=== PATIENT | male | born 1950 | race Caucasian/White ===

== ENCOUNTER 2020-07-07 16:37 | Outpatient (REF) | payer MEDICARE, SELFPAY | END 2020-07-07 16:38 | disposition home or self-care (01) | LOC: HO.LAB 16:37 | PROVIDERS: Visit Provider Internal Medicine | DX: Z20.828 Contact with and (suspected) exposure to other viral communicable diseases (principal) | CPT/HCPCS: C9803; U0003 ==

== ENCOUNTER 2021-10-29 20:48 | Emergency (ER) | payer MEDICARE, SELFPAY ==
--- NOTE | ~2021-10-29 | XR_ITS ---
EXAMINATION: XR CHEST CLINICAL INFORMATION: Tachycardia. COMPARISON: None TECHNIQUE: Frontal view of the chest was obtained. FINDINGS: No significant abnormality is noted involving the heart, lungs, mediastinum, bony thorax or soft tissues. XR/XR chest 1V IMPRESSION: Unremarkable examination.
--- NOTE | ~2021-10-29 | CT_ITS ---
EXAMINATION: CT ABDOMEN AND PELVIS WITH CONTRAST CLINICAL INFORMATION: Mid abdominal pain. COMPARISON: CT of the abdomen and pelvis done on 10/18/2015. TECHNIQUE: Multidetector volumetric images were obtained from the superior aspect of the liver through the pubic symphysis following administration 85 mL of Omnipaque 350 intravenous contrast. Sagittal and coronal reformatted images were obtained on the technologist's workstation. Oral contrast: No This CT examination was performed using dose optimization techniques as appropriate, variously including the following: *Automated exposure control *Adjustment of mA and/or kV according to patient size (this includes techniques or standardized protocols for targeted exams where dose is matched to indication/reason for exam; i.e. extremities or head) *Use of iterative reconstruction technique DLP: 592 mGy-cm FINDINGS: LUNG BASES: The visualized lung bases are unremarkable. LIVER, GALLBLADDER, AND BILIARY TREE: The liver is normal in size, shape, and attenuation. No focal hepatic lesion or biliary ductal dilatation is present. Multiple radiopaque well faceted gallstones are present without evidence of any wall thickening or pericholecystic fluid or features of biliary obstruction. PANCREAS: Unremarkable. SPLEEN: Unremarkable. ADRENAL GLANDS: Unremarkable. KIDNEYS AND URETERS: The kidneys are normal in size, shape, and attenuation. No hydronephrosis, hydroureter, or calculi seen. No perinephric stranding. BLADDER: Suboptimally distended, grossly unremarkable. GASTROINTESTINAL TRACT: Colonic diverticulosis related changes are present throughout the entire large bowel without any CT features of superimposed acute diverticulitis. The appendix is well-visualized at right quadrant and is unremarkable. The small bowel loops are decompressed. The stomach is decompressed. ABDOMINAL WALL: No significant hernia is appreciated. LYMPH NODES: Normal. VASCULAR: Diffuse atherosclerotic disease of the aorta and is branches without aneurysm formation. PELVIC VISCERA: There is no pelvic mass present. However the prostate is enlarged, measures 5.6 x 4.2 cm. No evidence of any free fluid and/or free air. OSSEOUS STRUCTURES: Moderate diffuse osteopenia. Moderate to severe degenerative spondylosis at L4-L5 and L5-S1. No suspicious focal osseous lesions. CT/CT abdomen pelvis w con IMPRESSION: 1. Cholelithiasis without any CT features of superimposed acute cholecystitis or biliary obstruction. 2. Colonic diverticulosis without any CT features of superimposed acute diverticulitis. 3. Enlarged prostate. 4. Moderate diffuse osteopenia and moderate to severe degenerative spondylosis at L4-L5 and L5-S1. Fleischner guidelines were followed.
[2021-10-29 20:52] VITALS: BP 136/99; PULSE 119; RESP 18; TEMP 37.2; O2SAT 94; BMI 28.5
--- NOTE | 2021-10-29 20:56 | ECG_ITS ---
Test Reason : Epigastric pain Blood Pressure : / mmHG Vent. Rate : 115 BPM Atrial Rate : 115 BPM P-R Int : 176 ms QRS Dur : 088 ms QT Int : 318 ms P-R-T Axes : 040 -01 006 degrees QTc Int : 439 ms Sinus tachycardia Inferior infarct , age undetermined Possible Anterior infarct , age undetermined Abnormal ECG When compared to the previous EKG of No significant changes seen Referred By: Matthew Allan Electronically Signed By:Andrey Cameron
[2021-10-29 21:04] LABS: MANUAL DIFF FLAG NO
[2021-10-29 21:07] LABS: Basophils Percent Auto 0.3 % (0-2); Hemoglobin 16.4 g/dl (14.0-18.0); Imm Gran Abs Auto 0.02 X10*3/uL (0.00-0.03); Imm Gran Pct Auto 0.3 % (0.0-0.4); Lymphocytes Absolute Auto 0.9 X10*3/uL (1.2-4.9); Lymphocytes Percent Auto 12.3 % (20-40); Mean Corpuscular HGB Conc 34.2 g/dl (31.0-36.0); Mean Corpuscular Hemoglobin 29.9 pg (27.0-33.0); Mean Corpuscular Volume 87.4 fL (80.0-98.0); Mean Platelet Volume 9.4 fL (9.4-12.4); Monocytes Absolute Auto 0.8 X10*3/uL (0.1-1.2); Monocytes Percent Auto 11.1 % (2-11); Neutrophils Absolute Auto 5.6 x10*3/uL (2.0-8.3); Platelet Count 184 X10*3/uL (160-400); Red Blood Count 5.49 X10*6/uL (4.60-5.80); Red Cell Distribution Width 12.5 % (11.0-16.0); White Blood Count 7.3 X10*3/uL (4.8-10.8)
[2021-10-29 21:31] LABS: Anion Gap 14 (12-20); Blood Urea Nitrogen 16 mg/dL (9-16); Calcium 9.8 mg/dL (8.4-10.2); Carbon Dioxide 24 mmol/L (22-29); Chloride 102 mmol/L (96-108); Creatinine Clr Calc Pharmacy 60.3; Estimated Glomerular Filt Rate > 60; Glucose Random 190 mg/dL (60-115); Potassium 4.3 mmol/L (3.3-5.1); Sodium 136 mmol/L (135-145)
[2021-10-29 21:36] LABS: Troponin-I High Sensitivity < 3.5 ng/L (<3.5-35.0)
--- NOTE | 2021-10-29 21:49 | ED.ABDPAIN ---
HPI - Abdominal Pain General Chief Complaint: Abdominal Pain Stated Complaint: stomach pain Time Seen by Provider: 10/29/21 21:45 Source: patient Mode of arrival: ambulatory Limitations: no limitations History of Present Illness HPI narrative: Patient with no significant past medical history notice epigastric pain for last 2 days with poor appetite and nausea. Patient never had similar pain in the past does not feel hungry Related Data Previous Rx's Medication Instructions Recorded ondansetron 4 mg disintegrating 4 mg PO Q6-8H PRN #7 tab 10/29/21 tablet oxycodone 5 mg tablet 5 mg PO Q6H PRN #20 tab 10/29/21 Allergies Allergy/AdvReac Type Severity Reaction Status Date / Time No Known Allergies Allergy Unverified 04/22/20 15:09 Review of Systems Review of Systems Yes all other systems are reviewed and are negative [facility] Past Medical History Medical History Hypertension Social History Social History Advance Directives: No Advance Directives Information Provided: No Physical Exam ED Vital Signs: Vital Signs - 24 hr 10/29/21 20:52 10/29/21 21:59 10/29/21 22:45 Temperature 99.0 F 99 F Pulse Rate 119 H 61 80 Respiratory Rate 18 18 14 Blood Pressure 136/99 H 114/63 135/85 Pulse Oximetry 94 97 99 BMI result Body Mass Index 28.5 Appearance: Alert. Oriented X3. No acute distress. Eyes: No pallor or icterus ENT: Pharynx normal. Oral Mucosa moist Neck: Normal inspection. Neck supple. CVS: Normal heart rate and rhythm. Pulses normal. Respiratory: No respiratory distress. Equal air entry bilateral, no wheezing/rales/rhonchi Abdomen: Soft , deep tenderness in epigastric area and right upper quadrant, no rebound tenderness or guarding Bowel sounds are present, no mass palpable, no CVA tenderness Skin: Skin warm and dry. Normal skin color. Normal skin turgor. Extremities: No lower extremity edema. No calf tenderness Neuro: Oriented X 3. No motor deficit. MDM - Abdominal Pain MDM Narrative Medical decision making narrative: Patient with cholelithiasis were normal LFTs and lipase no signs of biliary obstruction or cholecystitis patient feeling much better now after pain medication IV fluid discharge patient home advised to follow with surgeon Lab Data Attestation: I reviewed the patient's lab results. Result diagrams: 10/29/21 21:01 10/29/21 21:00 Labs: Lab Results 10/29/21 10/29/21 10/29/21 Range/Units 21:00 21:00 21:01 WBC 7.3 (4.8-10.8) X10*3/uL RBC 5.49 (4.60-5.80) X10*6/uL Hgb 16.4 (14.0-18.0) g/dl Hct 48.0 (42.0-52.0) % MCV 87.4 (80.0-98.0) fL MCH 29.9 (27.0-33.0) pg MCHC 34.2 (31.0-36.0) g/dl RDW 12.5 (11.0-16.0) % Plt Count 184 (160-400) X10*3/uL MPV 9.4 (9.4-12.4) fL Immature Gran % (Auto) 0.3 (0.0-0.4) % Neut % (Auto) 76.0 H (45-73) % Lymph % (Auto) 12.3 L (20-40) % [place] % (Auto) 11.1 H (2-11) % Eos % (Auto) 0.0 (0-4) % Baso % (Auto) 0.3 (0-2) % Lymph # (Auto) 0.9 L (1.2-4.9) X10*3/uL [place] # (Auto) 0.8 (0.1-1.2) X10*3/uL Eos # (Auto) 0.0 (0.0-0.4) X10*3/uL Baso # (Auto) 0.0 (0.0-0.2) X10*3/uL Abs Immat Gran (auto) 0.02 (0.00-0.03) X10*3/uL Absolute Neuts (auto) 5.6 (2.0-8.3) x10*3/uL Absolute Nucleated RBC 0.000 (0.0-0.012) X10*3/uL Nucleated RBC % (auto) 0.0 (0.0-0.2) /100WBC Sodium 136 (135-145) mmol/L Potassium 4.3 (3.3-5.1) mmol/L Chloride 102 (96-108) mmol/L Carbon Dioxide 24 (22-29) mmol/L Anion Gap 14 (12-20) BUN 16 (9-16) mg/dL Creatinine 1.16 (0.5-1.4) mg/dL Estim Creat Clear Calc 60.3 Estimated GFR > 60 Random Glucose 190 H (60-115) mg/dL Calcium 9.8 (8.4-10.2) mg/dL Total Bilirubin 0.8 (0.0-1.0) mg/dL Direct Bilirubin 0.3 (0.0-0.5) mg/dL AST 21 (5-37) U/L ALT 20 (0-40) U/L Alkaline Phosphatase 80 (39-117) U/L Troponin I High Sens < 3.5 (<3.5-35.0) ng/L Total Protein 7.4 (6.5-8.0) g/dL Albumin 4.2 (3.5-5.0) g/dL Lipase 35 (8-78) U/L 03// Range/Units 22:49 WBC (4.8-10.8) X10*3/uL RBC (4.60-5.80) X10*6/uL Hgb (14.0-18.0) g/dl Hct (42.0-52.0) % MCV (80.0-98.0) fL MCH (27.0-33.0) pg MCHC (31.0-36.0) g/dl RDW (11.0-16.0) % Plt Count (160-400) X10*3/uL MPV (9.4-12.4) fL Immature Gran % (Auto) (0.0-0.4) % Neut % (Auto) (45-73) % Lymph % (Auto) (20-40) % [place]ard % (Auto) (2-11) % Eos % (Auto) (0-4) % Baso % (Auto) (0-2) % Lymph # (Auto) (1.2-4.9) X10*3/uL [place]ard # (Auto) (0.1-1.2) X10*3/uL Eos # (Auto) (0.0-0.4) X10*3/uL Baso # (Auto) (0.0-0.2) X10*3/uL Abs Immat Gran (auto) (0.00-0.03) X10*3/uL Absolute Neuts (auto) (2.0-8.3) x10*3/uL Absolute Nucleated RBC (0.0-0.012) X10*3/uL Nucleated RBC % (auto) (0.0-0.2) /100WBC Sodium (135-145) mmol/L Potassium (3.3-5.1) mmol/L Chloride (96-108) mmol/L Carbon Dioxide (22-29) mmol/L Anion Gap (12-20) BUN (9-16) mg/dL Creatinine (0.5-1.4) mg/dL Estim Creat Clear Calc Estimated GFR Random Glucose (60-115) mg/dL Calcium (8.4-10.2) mg/dL Total Bilirubin (0.0-1.0) mg/dL Direct Bilirubin (0.0-0.5) mg/dL AST (5-37) U/L ALT (0-40) U/L Alkaline Phosphatase (39-117) U/L Troponin I High Sens < 3.5 (<3.5-35.0) ng/L Total Protein (6.5-8.0) g/dL Albumin (3.5-5.0) g/dL Lipase (8-78) U/L Discharge Plan Discharge Clinical Impression: Cholelithiasis Patient Disposition: Home, Self-Care Instructions: Gallstones (ED) Additional Instructions: Drink plenty of fluids Avoid fried food Follow with surgeon for Report to the ER if worsening of the pain Pain medication as advised Prescriptions: New ondansetron 4 mg tablet,disintegrating 4 mg PO Q6-8H PRN (Reason: nausea and vomiting) Qty: 7 0RF oxycodone 5 mg tablet 5 mg PO Q6H PRN (Reason: Pain, Moderate) Qty: 20 0RF Referrals: Garth Rothman MD [Physician] - 5 days Interventions: ED Discharge Assessment Last Done: 10/30/21 00:02 Discharge Date/Time: 10/30/21 00:02
--- NOTE | 2021-10-29 21:50 | PC.NURSE ---
Assumed care of pt Pt c/o sharp epigastric pain starting yesterday. Per pt, worse when laying down. Pt was at a wedding today and went home to lay down when pain worsened and decided to come to ED Pain non-radiating Denies n/v Pt on monitors NAD Will continue to monitor
[2021-10-29 21:59] VITALS: BP 114/63; PULSE 61; RESP 18; TEMP 37.2; O2SAT 97
[2021-10-29 22:15] LABS: Alanine Aminotransferase 20 U/L (0-40); Albumin Level 4.2 g/dL (3.5-5.0); Alkaline Phosphatase 80 U/L (39-117); Aspartate Amino Transferase 21 U/L (5-37); Bilirubin Direct 0.3 mg/dL (0.0-0.5); Bilirubin Total 0.8 mg/dL (0.0-1.0); Lipase 35 U/L (8-78); Total Protein 7.4 g/dL (6.5-8.0)
[2021-10-29] MEDS: iohexoL 350 MG/ML 100 ML INFUS..BTL IV (22:24)
[2021-10-29] MEDS: 0.9 % Sodium Chloride 1,000 ML 999 ML IV (22:31)
[2021-10-29] MEDS: Famotidine/PF 20 MG/2 ML VIAL IVPUSH (22:32)
[2021-10-29 22:45] VITALS: BP 135/85; PULSE 80; RESP 14; O2SAT 99
[2021-10-29 23:15] LABS: Troponin-I High Sensitivity < 3.5 ng/L (<3.5-35.0)
[2021-10-29] MEDS: Ketorolac Tromethamine 30 MG/ML VIAL IVPUSH (23:55)
== END 2021-10-30 00:02 | disposition home or self-care (01) ==
PROVIDERS: Emergency Provider Internal Medicine
DX: K80.20 Calculus of gallbladder without cholecystitis without obstruction (principal); R10.10 Upper abdominal pain, unspecified; I10 Essential (primary) hypertension
CPT/HCPCS: 36415; 71045; 74177; 80048; 80076; 83690; 84484; 85025; 93005; 96361; 96374; 96375; 99284; J1885; Q9967

== ENCOUNTER 2021-10-31 16:41 | Emergency (ER) | payer MEDICARE, SELFPAY ==
--- NOTE | ~2021-10-31 | XR_ITS ---
EXAMINATION: XR CHEST CLINICAL INFORMATION: Chest pain and cough COMPARISON: None TECHNIQUE: 2 views of the chest were obtained. FINDINGS: Normal symmetric lung volumes. No parenchymal consolidation. No pleural effusion. No pneumothorax. Cardiomediastinal silhouette and pulmonary vascularity are within normal limits. No acute osseous abnormalities. XR/XR chest 2V IMPRESSION: No acute findings
[2021-10-31 16:54] VITALS: BP 154/98; PULSE 111; RESP 18; TEMP 36.9; O2SAT 95; BMI 28.1
--- NOTE | 2021-10-31 16:57 | ECG_ITS ---
Test Reason : CHEST PAIN Blood Pressure : / mmHG Vent. Rate : 109 BPM Atrial Rate : 109 BPM P-R Int : 154 ms QRS Dur : 086 ms QT Int : 310 ms P-R-T Axes : -02 038 007 degrees QTc Int : 417 ms Sinus tachycardia Otherwise normal ECG When compared with ECG of 29-OCT-2021 20:59, Borderline criteria for Anterior infarct are no longer Present Referred By: Generic ED Physician Electronically Signed By:SHAILESH NIETO
[2021-10-31 17:12] LABS: MANUAL DIFF FLAG NO
[2021-10-31 17:19] LABS: Basophils Percent Auto 0.2 % (0-2); Eosinophils Percent Auto 0.1 % (0-4); Hematocrit 47.5 % (42.0-52.0); Hemoglobin 15.8 g/dl (14.0-18.0); Imm Gran Abs Auto 0.02 X10*3/uL (0.00-0.03); Imm Gran Pct Auto 0.2 % (0.0-0.4); Lymphocytes Absolute Auto 0.9 X10*3/uL (1.2-4.9); Lymphocytes Percent Auto 10.1 % (20-40); Mean Corpuscular HGB Conc 33.3 g/dl (31.0-36.0); Mean Corpuscular Hemoglobin 29.5 pg (27.0-33.0); Mean Corpuscular Volume 88.6 fL (80.0-98.0); Mean Platelet Volume 9.6 fL (9.4-12.4); Monocytes Absolute Auto 0.7 X10*3/uL (0.1-1.2); Neutrophils Percent Auto 81.4 % (45-73); Platelet Count 164 X10*3/uL (160-400); Red Blood Count 5.36 X10*6/uL (4.60-5.80); Red Cell Distribution Width 12.6 % (11.0-16.0); White Blood Count 8.6 X10*3/uL (4.8-10.8)
[2021-10-31 17:26] LABS: Anion Gap 13 (12-20); Blood Urea Nitrogen 17 mg/dL (9-16); Calcium 9.8 mg/dL (8.4-10.2); Carbon Dioxide 28 mmol/L (22-29); Chloride 103 mmol/L (96-108); Creatinine Clr Calc Pharmacy 62.5; Estimated Glomerular Filt Rate > 60; Glucose Random 152 mg/dL (60-115); Potassium 4.1 mmol/L (3.3-5.1); Sodium 140 mmol/L (135-145)
[2021-10-31 17:33] LABS: Troponin-I High Sensitivity < 3.5 ng/L (<3.5-35.0)
[2021-11-01 01:38] VITALS: BP 134/92; PULSE 98; RESP 14; O2SAT 99
--- NOTE | 2021-11-01 01:43 | ED.CHESTPAIN ---
HPI - Chest Pain General Chief Complaint: Chest Pain Stated Complaint: chest pain Time Seen by Provider: 11/01/21 01:43 Source: patient Mode of arrival: ambulatory Limitations: no limitations History of Present Illness HPI narrative: patient with chest pain due to coughing all day, no fever complaint: chest pain Timing of current episode: constant Onset: other (coughing) Pain location: substernal Severity: mild Quality: sharp Associated symptoms: other (shortness of breath) Related Data Previous Rx's Medication Instructions Recorded ondansetron 4 mg disintegrating 4 mg PO Q6-8H PRN #7 tab 10/29/21 tablet oxycodone 5 mg tablet 5 mg PO Q6H PRN #20 tab 10/29/21 naproxen 500 mg tablet (Naprosyn) 500 mg PO BID #20 tab 11/01/21 [id number] 2.5 20 ml PO Q4H PRN #118 ml 11/01/21 mg-5 mg-50 mg/5 mL oral liquid (Robitussin Cough and Cold CF) Allergies Allergy/AdvReac Type Severity Reaction Status Date / Time No Known Allergies Allergy Unverified 04/22/20 15:09 Review of Systems Constitutional: Constitutional: Reports no additional constitutional complaints Eyes: Eyes: Reports no additional eye complaints ENT: Denies dizziness Cardiovascular: Cardiovascular: Reports no additional cardiovascular complaints Respiratory: Respiratory: Reports as per HPI Gastrointestinal: Gastrointestinal: Reports no additional gastrointestinal complaints Musculoskeletal: Musculoskeletal: Reports no additional musculoskeletal complaints Integumentary/Breasts: Skin/Breast: Denies rash Neurologic: Reports system reviewed and no additional complaints, except as documented, Denies dizziness and Denies Sensory deficit (Neuro) Psychiatric: Psychiatric: Denies anxiety [facility] Past Medical History Medical History Hypertension Social History Social History Advance Directives: No Advance Directives Information Provided: No Physical Exam Vital Signs: Vital Signs: Last Vital Signs Temp 98.4 F 10/31/21 16:54 Pulse 102 H 11/01/21 01:46 Resp 16 11/01/21 01:46 BP 141/97 H 11/01/21 01:46 Pulse Ox 95 11/01/21 01:46 BMI result Body Mass Index 28.1 Const: General: healthy appearing Nutritional Appearance: average body habitus Orientation/consciousness: oriented to person and patient oriented x3 Limitations: no limitations HEENT: Head: Yes normal to inspection Ears: external ears normal General nose exam: Normal external nose present Mouth: Normal oral and palatal mucosa present and oropharynx normal Throat: Yes posterior oropharynx normal Eyes: General: appearance normal, both eyes and all related structures Neck: Other: supple Neck: Yes normal visual inspection Chest: Other: reproducible pain on sternum with palpation Resp: Auscultation: clear to auscultation bilaterally Cardio: Jugular venous distension: no JVD Rate: regular rate Rhythm: regular rhythm Heart sounds: S1 normal heart sound present and S2 normal heart sound present GI: Inspection: Yes normal to inspection Palpation (GI): Soft to palpation, nontender and No hepatosplenomegaly present Auscultation: normal bowel sounds : General: Yes no CVA tenderness Back/Spine/Pelvis: Back: no CVA tenderness Skin: General skin exam: no rashes or lesions noted Neuro: General: oriented to person and patient oriented x3 Cranial nerves: Yes CN's II-XII intact bilaterally Motor exam (neuro): 5/5 motor strength present throughout Sensory Exam: No Sensory deficit (Neuro) Extrem: General: Yes normal to inspection Psych: Appearance: grossly normal Course Reevaluation(s) Reevaluation #1: patient with reproducible chest pain on palpation, xray shows no infiltrate, will dc on nsaids, and cough medicine Time: 03:22 [facility] [place] - Chest Pain Lab Data Result diagrams: 10/31/21 17:06 10/31/21 17:06 Labs: Lab Results 10/31/21 10/31/21 10/31/21 Range/Units 17:06 17:06 17:06 WBC 8.6 (4.8-10.8) X10*3/uL RBC 5.36 (4.60-5.80) X10*6/uL Hgb 15.8 (14.0-18.0) g/dl Hct 47.5 (42.0-52.0) % MCV 88.6 (80.0-98.0) fL MCH 29.5 (27.0-33.0) pg MCHC 33.3 (31.0-36.0) g/dl RDW 12.6 (11.0-16.0) % Plt Count 164 (160-400) X10*3/uL MPV 9.6 (9.4-12.4) fL Immature Gran % (Auto) 0.2 (0.0-0.4) % Neut % (Auto) 81.4 H (45-73) % Lymph % (Auto) 10.1 L (20-40) % [place] % (Auto) 8.0 (2-11) % Eos % (Auto) 0.1 (0-4) % Baso % (Auto) 0.2 (0-2) % Lymph # (Auto) 0.9 L (1.2-4.9) X10*3/uL [place] # (Auto) 0.7 (0.1-1.2) X10*3/uL Eos # (Auto) 0.0 (0.0-0.4) X10*3/uL Baso # (Auto) 0.0 (0.0-0.2) X10*3/uL Abs Immat Gran (auto) 0.02 (0.00-0.03) X10*3/uL Absolute Neuts (auto) 7.0 (2.0-8.3) x10*3/uL Absolute Nucleated RBC 0.000 (0.0-0.012) X10*3/uL Nucleated RBC % (auto) 0.0 (0.0-0.2) /100WBC Sodium 140 (135-145) mmol/L Potassium 4.1 (3.3-5.1) mmol/L Chloride 103 (96-108) mmol/L Carbon Dioxide 28 (22-29) mmol/L Anion Gap 13 (12-20) BUN 17 H (9-16) mg/dL Creatinine 1.11 (0.5-1.4) mg/dL Estim Creat Clear Calc 62.5 Estimated GFR > 60 Random Glucose 152 H (60-115) mg/dL Calcium 9.8 (8.4-10.2) mg/dL Troponin I High Sens < 3.5 (<3.5-35.0) ng/L Imaging Data Chest x-ray: Radiologist's impression: FINDINGS: Normal symmetric lung volumes. No parenchymal consolidation. No pleural effusion. No pneumothorax.? Cardiomediastinal silhouette and pulmonary vascularity are within normal limits. No acute osseous abnormalities. XR/XR chest 2V IMPRESSION: No acute findings ECG Data ECG #1: Attestation: I personally reviewed and interpreted this ECG as follows: Interpretation: sinus 105, old inferior and poor R wave progression anteriorly Discharge Plan Discharge Clinical Impression: Chest pain, Costalchondritis, Upper respiratory infection Patient Disposition: Home, Self-Care Instructions: Chest Pain (ED), Upper Respiratory Infection (ED), Chest Wall Pain (ED) Prescriptions: New naproxen [Naprosyn] 500 mg tablet 500 mg PO BID Qty: 20 0RF Robitussin Cough and Cold CF 2.5-5-50 mg/5 mL liquid 20 ml PO Q4H PRN (Reason: cough) Qty: 118 0RF No Action ondansetron 4 mg tablet,disintegrating 4 mg PO Q6-8H PRN (Reason: nausea and vomiting) Qty: 7 0RF oxycodone 5 mg tablet 5 mg PO Q6H PRN (Reason: Pain, Moderate) Qty: 20 0RF Referrals: [facility] [Primary Care Provider] - 1 week
[2021-11-01 01:46] VITALS: BP 141/97; PULSE 102; RESP 16; O2SAT 95
[2021-11-01] MEDS: Ketorolac Tromethamine 60 MG/2 ML VIAL IM (02:30)
[2021-11-01] MEDS: guaiFENesin 200 MG/10 ML 10 ML LIQUID PO (02:30)
[2021-11-01 03:32] VITALS: BP 100/65; PULSE 94; RESP 18; O2SAT 93
[2021-11-01 03:41] VITALS: RESP 16
== END 2021-11-01 03:40 | disposition home or self-care (01) ==
PROVIDERS: Emergency Provider Emergency Medicine
DX: J06.9 Acute upper respiratory infection, unspecified (principal); R07.9 Chest pain, unspecified; M94.0 Chondrocostal junction syndrome [Tietze]; I10 Essential (primary) hypertension
CPT/HCPCS: 36415; 71046; 80048; 84484; 85025; 93005; 96372; 99284; J1885

== ENCOUNTER 2025-05-08 09:16 | Emergency (ER) | payer MEDICARE, SELFPAY ==
--- NOTE | 2025-05-08 09:17 | ECG_ITS ---
Test Reason : palpatations Blood Pressure : */* mmHG Vent. Rate : 88 BPM Atrial Rate : 88 BPM P-R Int : 192 ms QRS Dur : 94 ms QT Int : 350 ms P-R-T Axes : 40 0 5 degrees QTcB Int : 423 ms Normal sinus rhythm Inferior infarct , age undetermined Abnormal ECG When compared with ECG of 31-Oct-2021 16:56, Inferior infarct is now Present Referred By: Generic ED Physician Electronically Signed By: SHAILESH NIETO
[2025-05-08 09:32] VITALS: BP 167/100; PULSE 88; RESP 16; TEMP 36.1; O2SAT 98; BMI 24.4
--- NOTE | 2025-05-08 09:55 | ED_ITS ---
HPI - General Adult General Chief complaint: Arrhythmia/Palpitations Stated complaint: Heart Rate 130 Diabetic Time Seen by Provider: 05/08/25 09:33 History of Present Illness ED Provider: Armida DAVISON narrative: The patient is a 75-year-old male who [facility] an [facility] this morning for a Department of transportation physical exam. He says that when he came to the hospital campus he misunderstood where he was supposed to go and so came to the emergency room instead. When he was told where he had to go he then ran up to the [facility] office. This included running uphill. By the time he got to the clinic he was mildly short of breath and his heart was racing. Staff at the clinic measured his heart rate at 130. They also checked a blood sugar that was over 300. They were concerned about these findings and sent him to the emergency room. The patient says that he does not feel ill at all. He says that he thinks his rapid heart rate was simply the result of the exertion of running up the hill and fear of being too late for his appointment. The patient has a history of hypertension for which he takes lisinopril. He says he does not have a history of diabetes. Lisinopril is his only medication. Related Data Previous Rx's ?Medication ?Instructions ?Recorded ondansetron 4 mg disintegrating 4 mg PO Q6-8H PRN naus ea and 10/29/21 tablet vomiting #7 tabs oxycodone 5 mg tablet 5 mg PO Q6H PRN Pain, Modera te #20 10/29/21 tabs naproxen 500 mg tablet (Naprosyn) 500 mg PO BID #20 ta bs 11/01/21 pornejfzcavpt-JD-wzprurvzcnb 2.5 20 ml PO Q4H PRN coug h #118 mL 11/01/21 mg-5 mg-50 mg/5 mL oral liquid (Robitussin Cough and Cold CF) metformin 500 mg tablet 500 mg PO BID #60 tabs 05/08 Allergies Allergy/AdvReac Type Severity Reaction Status Date / Time No Known Allergies Allergy Verified 05/08/25 09:33 Review of Systems 2 Review of Systems: Yes all other systems are reviewed and are negative [facility] Past Medical History Medical History Hypertension Social History Social History Advance Directives: No Advance Directives Information Provided: No Physical Exam ED Vital Signs: Vital Signs - 24 hr 05/08/25 09:32 05/08/25 11:25 Temperature 97.0 F 97.0 F Pulse Rate 88 88 Respiratory Rate 16 16 Blood Pressure 167/100 H 143/100 H Pulse Oximetry 98 98 Oxygen Delivery Method Room Air Room Air BMI result Body Mass Index 24.4 Const Other: The patient is a 75-year-old male who is awake and alert and looks quite healthy and athletic for his age. He does not appear in any distress Orientation/consciousness: patient oriented x3 HENMT Other: The face is symmetrical. ?Mucous membranes moist. Eyes Other: Pupils are round equal, conjunctivae are clear, extraocular movements intact General: appearance normal, both eyes and all related structures Neck Neck: Yes normal visual inspection, Yes full ROM and Yes no JVD Resp Effort & Inspection: normal respiratory effort Auscultation: clear to auscultation bilaterally Cardio Other: No murmur Rate: regular rate Rhythm: regular rhythm Heart sounds: S1 normal heart sound present and S2 normal heart sound present GI Other: Abdomen is soft and nontender Skin Other: The skin is dry and unremarkable Neuro General: patient oriented x3, tone normal, moves all extremities, no focal motor deficits and CN's II-XI intact bilaterally Extrem Other: There is no calf swelling or tenderness. No asymmetry. No peripheral edema. 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 Today he had an appointment with the [facility] for a Department of transportation physical. He says that he had to run to the appointment because he misunderstood where on the hospital campus the [facility] office his. He 1st came to the emergency room and then ran up to the [facility] office. While at the office he apparently at 1st had a near normal heart rate but his heart rate later went up to the 130s according to staff at the [facility]. Also a fingerstick glucose was 326. He was then referred to the emergency room. I spoke to Dr. Diaz who says that he did not feel that the patient the patient has heart rate was irregular at the time that it was tachycardic. However they were not able to do any EKG at the clinic. By the time the patient arrived here he had a normal heart rate and he has a normal EKG. He is in normal sinus rhythm. His EKGs unchanged from previous EKGs. The patient does not have any complaint. He thinks his heart rate went fast because of the exertion of getting to the appointment on time. He says he was also feeling very nervous about missing the appointment. Hemoglobin A1c today is 7.7. A urinalysis done at the [facility] showed glucosuria. I suspect the patient has some degree of type 2 diabetes for which he is not currently being treated. There was no evidence of atrial fibrillation since his heart rate was normal and he was in sinus rhythm on arrival in the emergency room. I spoke to Dr. Diaz of the [facility]. He feels the patient will need clearance from his primary care doctor from both the point of view of his diabetes and his episode of tachycardia before he should be seen again at the [facility] for clearance for return to work with a DOT clearance. I explained all this to the patient. He will be started on a course of metformin 500 mg b.i.d. which I have sent to his pharmacy. He should follow up soon with his PCP. Lab Data 05/08/25 10:00 05/08/25 10:00 Labs: Lab Results 05/08/25 Range/Units 10:00 WBC 6.1 (4.8-10.8) X10*3/uL RBC 5.29 (4.60-5.80) X10*6/uL Hgb 16.0 (14.0-18.0) g/dl Hct 45.2 (42.0-52.0) % MCV 85.4 (80.0-98.0) fL MCH 30.2 (27.0-33.0) pg MCHC 35.4 (31.0-36.0) g/dl RDW 12.5 (11.0-16.0) % Plt Count 211 D (160-400) X10*3/uL MPV 8.9 L (9.4-12.4) fL Immature Gran % (Auto) 0.3 (0.0-0.4) % Neut % (Auto) 65.7 (45-73) % Lymph % (Auto) 21.3 (20-40) % [place] % (Auto) 11.4 H (2-11) % Eos % (Auto) 0.8 (0-4) % Baso % (Auto) 0.5 (0-2) % Lymph # (Auto) 1.3 (1.2-4.9) X10*3/uL [place] # (Auto) 0.7 (0.1-1.2) X10*3/uL Eos # (Auto) 0.1 (0.0-0.4) X10*3/uL Baso # (Auto) 0.0 (0.0-0.2) X10*3/uL Abs Immat Gran (auto) 0.02 (0.00-0.03) X10*3/uL Absolute Neuts (auto) 4.0 (2.0-8.3) x10*3/uL Absolute Nucleated RBC 0.000 (0.0-0.012) X10*3/uL Nucleated RBC % (auto) 0.0 (0.0-0.2) /100WBC Sodium 137 (135-145) mmol/L Potassium 3.7 (3.3-5.1) mmol/L Chloride 101 (96-108) mmol/L Carbon Dioxide 28 (22-29) mmol/L Anion Gap 12 (12-20) BUN 20 H (9-16) mg/dL Creatinine 1.02 (0.5-1.4) mg/dL Estim Creat Clear Calc 60.6 Estimated GFR > 60 Random Glucose 267 H (60-115) mg/dL Estimat Average Glucose 174 mg/dL Hemoglobin A1c % 7.7 H (<6.0) % Calcium 10.2 (8.4-10.2) mg/dL Magnesium 1.8 (1.6-2.6) mg/dL Total Bilirubin 1.1 H (0.0-1.0) mg/dL AST 20 (5-37) U/L ALT 22 (0-40) U/L Alkaline Phosphatase 101 (39-117) U/L Troponin I High Sens < 2.7 (<3.5-35.0) ng/L NT-Pro-B Natriuret Pep < 15.8 (<300) pg/mL Total Protein 7.9 (6.5-8.0) g/dL Albumin 4.5 (3.5-5.0) g/dL TSH 0.59 (0.32-4.0) uIU/mL Independent Interpretation I performed an independent interpretation of an: EKG Interpretation: EKG at 09/08/2008 shows normal sinus rhythm at 80 beats per minute. It is an unremarkable EKG when compared with his previous EKGs. There are Q-waves inferiorly but this finding goes back as far as 2005. No acute findings. Discharge Plan Discharge Clinical Impression: Paroxysmal tachycardia, Type 2 diabetes mellitus Patient Disposition: Home, Self-Care Additional Instructions: Your heart rate and your heart rhythm in the emergency room has been fine. Your blood testing suggest that you probably have some mild degree of type 2 diabetes. I have sent a prescription for a new medication for you to help start treatment for your diabetes. The medication is called metformin. Please take it 2 times a day. I spoke to the doctor at the [facility]. He says you will need a note from your regular doctor before you are seen at the [facility] again. The note should address your heart rhythm and also your diabetes. After that you should be cleared to return to work. I would recommend contacting your regular doctor's office to see if they can give you a prompt follow up appointment before your currently scheduled appointment. If at any point you are significantly worse please return to the emergency department. Prescriptions: New metformin 500 mg tablet 500 mg PO BID Qty: 60 0RF No Action ondansetron 4 mg tablet,disintegrating 4 mg PO Q6-8H PRN (Reason: nausea and vomiting) Qty: 7 0RF oxycodone 5 mg tablet 5 mg PO Q6H PRN (Reason: Pain, Moderate) Qty: 20 0RF naproxen [Naprosyn] 500 mg tablet 500 mg PO BID Qty: 20 0RF Robitussin Cough and Cold CF 2.5-5-50 mg/5 mL liquid 20 ml PO Q4H PRN (Reason: cough) Qty: 118 0RF Referrals: [facility] [Provider Group] Interventions: ED Discharge Assessment Last Done: 05/08/25 11:25 Discharge Date/Time: 05/08/25 11:29 Print Language: Khmer
[2025-05-08 10:06] LABS: MANUAL DIFF FLAG NO
[2025-05-08 10:11] LABS: Hematocrit 45.2 % (42.0-52.0); Hemoglobin 16.0 g/dl (14.0-18.0); Imm Gran Abs Auto 0.02 X10*3/uL (0.00-0.03); Imm Gran Pct Auto 0.3 % (0.0-0.4); Lymphocytes Absolute Auto 1.3 X10*3/uL (1.2-4.9); Mean Corpuscular HGB Conc 35.4 g/dl (31.0-36.0); Mean Corpuscular Hemoglobin 30.2 pg (27.0-33.0); Mean Corpuscular Volume 85.4 fL (80.0-98.0); NRBC Abs Auto 0.000 X10*3/uL (0.0-0.012); NRBC Pct Auto 0.0 /100WBC (0.0-0.2); Platelet Count 211 X10*3/uL (160-400); Red Blood Count 5.29 X10*6/uL (4.60-5.80); White Blood Count 6.1 X10*3/uL (4.8-10.8)
[2025-05-08 10:32] LABS: Alanine Aminotransferase 22 U/L (0-40); Albumin Level 4.5 g/dL (3.5-5.0); Alkaline Phosphatase 101 U/L (39-117); Anion Gap 12 (12-20); Aspartate Amino Transferase 20 U/L (5-37); Blood Urea Nitrogen 20 mg/dL (9-16); Calcium 10.2 mg/dL (8.4-10.2); Carbon Dioxide 28 mmol/L (22-29); Chloride 101 mmol/L (96-108); Creatinine Clr Calc Pharmacy 60.6; Estimated Glomerular Filt Rate > 60; Magnesium 1.8 mg/dL (1.6-2.6); Potassium 3.7 mmol/L (3.3-5.1); Sodium 137 mmol/L (135-145); Total Protein 7.9 g/dL (6.5-8.0)
[2025-05-08 10:36] LABS: NT Pro B Type Natriuretic Pept < 15.8 pg/mL (<300); Troponin-I High Sensitivity < 2.7 ng/L (<3.5-35.0)
[2025-05-08 10:47] LABS: Thyroid Stimulating Hormone 0.59 uIU/mL (0.32-4.0)
--- OUTSIDE RECORDS SUMMARY | 2025-05-08 10:53 | XMS_ITS | Encounter Summary ---
Author Organization [employer] Address [address] [place] [address] Care Team Providers Care Bank Teller Machine Mechanic Name Role Phone Anju Martínez MD Primary Care Provider + Reason for Visit * Reason Comments Medicare Annual Wellness Visit Initial A [place] unscheduled Encounter Details Date Type Department Care Team ([facility] st Contact Info) Description 05/08/2025 Patient Outreach [facility] [address] [place] [address] Anju Martínez MD [address] [place] [address] Medicare Annual Wellness Visit Initial (AW[place] unscheduled) Social History Tobacco Use Types Packs/Day Years Used Date Smoking Tobacco: Former Cigarettes Smokeless Tobacco: Never Alcohol Use Standard Drinks/Week Comments Yes 0 (1 standard drink = 0.6 oz pur e alcohol) oca Depression Answer Date Recorded Patient Health Questionnaire-9 Score 0 03/27/2025 Patient Health Questionnaire-9 Score 0 03/27/2025 Last PHQ-9: Questionnaire Data Not on file 0 03/27/2025 Housing Stability Answer Date Recorded What is your housing situation today? I have yan limon 03/27/[address] you li ve. Do you have problems with any of the following? None of the above 03/27/2025 Food Insecurity Answer Date Recorded Within the past 12 months, y ou worried that your food would run out before you got money to buy more: Never True 03/27/2025 Within the past 12 months,th e food you bought just didn't last and you didn't have enough money to get more: Never True Transportation Answer Date Recorded In the past 12 months, has l ack of transportation kept you from medical appts, meetings, work or from getting things needed for daily living? No 03/27/2025 Utilities Answer Date Recorded In the past 12 months, has t he electric, gas, oil or water company threatened to shut off services in your home? No 03/27/2025 Depression Answer Date Recorded Patient Health Questionnaire-2 Score 0 03/27/2025 Internet Access Answer Date Recorded Internet Access Q1 Yes 03/27/2025 Internet Access Q2 Not on file 03/27/2025 Sex and Gender Information Value Date Recorded Sex Assigned at Male 06/05/2022 10:21 AM EDT Legal Sex Male 10:21 AM EDT Gender Identity Male 06/05/2022 10:21 AM EDT Sexual Orientation Choose not to disclose 2021 10:21 AM EDT documented as of this encounter Progress Notes * Lanie Bhagat - 05/08/2025 10:03 AM EDT CC Lanie placed outbound call to patient for Annual Wellness Visit outreach. Patient's name and were confirmed. Patient educated on the purpose of Medicare Annual Wellness Visits however, patient current is hospitalized and will call in the future. documented in this encounter Plan of Treatment Upcoming Encounters Date Type Department Care Team (Late st Contact Info) Description 05/29/2025 11:15 AM EDT Office Visit [facility] [address] [place] [address] Anju Martínez MD [address] [place] [address] 07/07/2025 1:00 PM EST Office Visit [facility] [address] [place] [address] Zoë Sanchez, PRINCE [address] [place] [address] documented as of this encounter Goals Goal Patient Goal Type Associated Problems Recent Progress Patient-Stated? Author Blood Pressure < 140/90 Blood Pressure 160/100(2024 11:46 AM EDT) Boni Berrios, Tracy documented as of this encounter Visit Diagnoses Not on filedocumented in this encounter Additional Health Concerns Assessment Noted Time PHQ-9 Depression Total Score: 0 03/27/20 11:48 AM EDT documented as of this encounter Care Teams Bank Teller Machine Mechanic Relationship Specialty Start Date End Date Anju Martínez MD [address] [place] [phone] PCP - General Family Medicine 03/21/17 documented as of this encounter
--- OUTSIDE RECORDS SUMMARY | 2025-05-08 10:53 | XMS_ITS | Encounter Summary ---
Author Organization [employer] Address [address] [place] [address] [address] [place] [address] Care Team Providers Care Python Programmer Name Role Phone Anju Martínez MD Primary Care Provider + Encounter Details Date Type Department Care Team (Late st Contact Info) Description 05/08/2025 Orders Only GENERIC EXTERNAL DATA DEPARTMENT Provider, Generic External Data Social History Tobacco Use Types Packs/Day Years [...] AM EDT documented as of this encounter Plan of Treatment Upcoming Encounters Date Type Department Care Team (Late st Contact Info) Description 05/29/2025 11:15 AM EDT Office Visit [facility] [address] [place] [address] Anju Martínez MD [address] [place] [address] 07/07/2025 1:00 PM EST Office Visit [facility] [address] [place] [address] Zoë Sanchez, OD [address] [place] [address] documented as of this encounter Goals Goal Patient Goal Type Associated Problems Recent Progress Patient-Stated? Author Blood Pressure < 140/90 Blood Pressure 160/100(2024 11:46 AM EDT) No Boni Shetty, PharmD documented as of this encounter Procedures Procedure Name Priority Date/Time Associated Diagnosis Comments HIGH SENSITIVITY TROPONIN I Routine 05/08/2025 10:00 AM EDT NT-PROBNP Routine 05/08/2025 10:00 AM EDT CBC WITH AUTO DIFFERENTIAL Routine 05/08/2025 10:00 AM EDT TSH Routine 05/08/2025 10:00 AM EDT MAGNESIUM Routine 05/08/2025 10:00 AM EDT HEMOGLOBIN A1C Routine 05/08/2025 10:00 AM EDT COMPREHENSIVE METABOLIC PANEL Routine 05/08/2025 10:00 AM EDT documented in this encounter Results * TSH (05/08/2025 10:00 AM EDT) Thyroid Stimulating Hormone 0.59 0.32 - 4.0 uIU/mL [facility] Comment:TSH 3rd Generation ( [facility]) 05/08/2025 10:0 0 AM EDT 05/08/2025 10:05 AM EDT us Generic External Data Provider LAB BLOOD ORDERAB LES Final Result Performing Organization Address [facility]/ZIP Co de Phone Number [facility] [address] [place] [phone] * NT-proBNP (05/08/2025 10:00 AM EDT) NT-proBNP <15.8 <300 pg/mL [facility] Comment:Reference Range:Age Group (years) NT-proBNP (pg/ml) InterpretationAll <300 Negative: HF unlikelyFor patients presenting to the ED with clinical suspicion ofnew onset or worsening HF, see below:18 to <50 >299.9 to <450.0 Grayzone: [id number] to 75 >299.9 to <900.0 other causes of>75 >299.9 to <1800.0 NT-proBNP [id number] to <50 >449.9 Positive: HF [id number] >899.9>75 >1799.9Note: Elevated NT-proBNP levels should be interpreted inthe context of other clinical information. 05/08/2025 10:0 0 AM EDT 05/08/2025 10:05 AM EDT us Generic External Data Provider LAB BLOOD ORDERAB LES Final Result Performing Organization Address City/[facility]/ZIP Co de Phone Number [facility] [address] [place] [phone] * High Sensitivity Troponin I (05/08/2025 10:00 AM EDT) [facility] TROPONIN I HIGH SENSITIVITY <2.7 <3.5 - 35.0 ng/L [facility] Comment:The [facility] high sens itivity Troponin-I results should beused in conjunction with other diagnostic information suchas ECG, clinical observations and information, and patientsymptoms to aid in the diagnosis of MA. 05/08/2025 10:0 0 AM EDT 05/08/2025 10:05 AM EDT Generic External Data Provider LAB BLOOD ORDERAB LES Final Result Performing Organization Address [facility]/ZIP Co de Phone Number [facility] [address] [place] [phone] * Magnesium (05/08/2025 10:00 AM EDT) [facility] Magnesium 1.8 1.6 - 2.6 mg/dL [facility] 05/08/2025 10:0 0 AM EDT 05/08/2025 10:05 AM EDT Keypr External Data Provider LAB BLOOD ORDERAB LES Final Result Performing Organization Address [facility] de Phone Number [facility] [address] [place] [phone] * (ABNORMAL) Comprehensive Metabolic Panel (05/08/2025 10:00 AM EDT) [facility] Sodium 137 135 - 145 mmol/L [facility] Potassium 3.7 3.3 - 5.1 mmol/L [facility] Chloride 101 96 - 108 mmol/L [facility] Carbon Dioxide 28 22 - 29 mmol/L [facility] Anion Gap 12 12 - 20 [facility] Urea Nitrogen (BUN) 20(H) 9 - 16 mg/dL [facility] Creatinine, Serum 1.02 0.5 - 1.4 mg/dL [facility] Creatinine Clr Calc Pharmacy 60.6 [facility] Comment:eGFR (calculated fro m the MDRD study equation) and eCrCl(calculated from the Cockcroft-Gault equation) are based ondifferent parameters and may not yield comparable results.If eCrCl result is absurd, please check patient'sheight/weight. Estimated Glomerular Filt Rate >60 [facility] Comment:Chronic Kidney Disea se: Estimated GFR < 60 mL/min/[id number] Kidney Disease: Estimated GFR < 15 mL/min/1.73m2 Glucose 267(H) 60 - 115 mg/dL [facility] Calcium 10.2 8.4 - 10.2 mg/dL [facility] Bilirubin, Total 1.1(H) 0.0 - 1.0 mg/dL [facility] Aspartate Amino Transferase 20 5 - 37 U/L [facility] Alanine Aminotransferase 22 0 - 40 U/L [facility] Total Protein 7.9 6.5 - 8.0 g/dL [facility] Albumin Level 4.5 3.5 - 5.0 g/dL [facility] Alkaline Phosphatase 101 39 - 117 U/L [facility] 05/08/2025 10:0 0 AM EDT 05/08/2025 10:05 AM EDT us Generic External Data Provider LAB BLOOD ORDERAB LES Final Result [facility] [address] [place] [phone] * (ABNORMAL) Hemoglobin A1c (05/08/2025 10:00 AM EDT) Hemoglobin A1c 7.7(H) <6.0 % [facility] Comment:Hemoglobin A1C Refer ence Range Adults: 4.8 - 6.0 % Non diabetic: < 6.0 % Goal: < 7.0 %Additional Action Suggested: > 8.0 %Note: Hemoglobin A1c results are invalid for patients with abnormal amounts of HbF. Blood transfusions may impact the HbA1c concentration in the patient sample. Estimated Average Glucose 174 mg/dL [facility] Comment:eAG = Estimated ave rage glucose which is %A1C expressed asaverage glucose, using the formula of the [id number]-ElgjohcUwdfxnp Glucose study (ADAG), Diabetes Care, Vol.31,#8,Mar. 2007 05/08/2025 10:0 0 AM EDT 05/08/2025 10:05 AM EDT us Generic External Data Provider LAB BLOOD ORDERAB LES Final Result [facility] [address] [place] [phone] [phone] * (ABNORMAL) CBC auto differential (05/08/2025 10:00 AM EDT) White Blood Count 6.1 4.8 - 10.8 X10*3/uL [facility] Red Blood Count 5.29 4.60 - 5.80 X10*6/uL [facility] Hemoglobin 16.0 14.0 - 18.0 g/dl [facility] Hematocrit 45.2 42.0 - 52.0 % [facility] Mean Corpuscular Volume 85.4 80.0 - 98.0 fL [facility] Mean Corpuscular Hemoglobin 30.2 27.0 - 33.0 pg [facility] Mean Corpuscular HGB Conc 35.4 31.0 - 36.0 g/dl [facility] Red Cell Distribution Width 12.5 11.0 - 16.0 % [facility] Platelet Count 211 160 - 400 X10*3/uL [facility] Mean Platelet Volume 8.9(L) 9.4 - 12.4 fL [facility] Neutrophils Percent Auto 65.7 45 - 73 % [facility] Imm Gran Pct Auto 0.3 0.0 - 0.4 % [facility] Lymphocytes Percent Auto 21.3 20 - 40 % [facility] Monocytes Percent Auto 11.4(H) 2 - 11 % [facility] Eosinophils Percent Auto 0.8 0 - 4 % [facility] Basophils Percent Auto 0.5 0 - 2 % [facility] NRBC Pct Auto 0.0 0.0 - 0.2 /100WBC [facility] Neutrophils Absolute Auto 4.0 2.0 - 8.3 x10*3/uL [facility] Imm Gran Abs Auto 0.02 0.00 - 0.03 X10*3/uL [facility] Lymphocytes Absolute Auto 1.3 1.2 - 4.9 X10*3/uL [facility] Monocytes Absolute Auto 0.7 0.1 - 1.2 X10*3/uL [facility] Eosinophils Absolute Auto 0.1 0.0 - 0.4 X10*3/uL [facility] Basophils Absolute Auto 0.0 0.0 - 0.2 X10*3/uL [facility] NRBC Abs Auto 0.000 0.0 - 0.012 X10*3/uL [facility] 05/08/2025 10:0 0 AM EDT 05/08/2025 10:05 AM EDT us Generic External Data Provider LAB BLOOD ORDERAB LES Final Result [facility] [address] [place] [phone] documented in this encounter Visit Diagnoses Not on filedocumented in this encounter Additional Health Concerns Assessment Noted Time PHQ-9 Depression Total Score: 0 03/27/20 25 11:48 AM EDT documented as of this encounter Care Teams Python Programmer Relationship Specialty Start Date End Date Anju Martínez MD [address] [place] [phone] PCP - General Family Medicine 03/21/17 documented as of this encounter
--- OUTSIDE RECORDS SUMMARY | 2025-05-08 10:54 | XMS_ITS | Clinical Summary ---
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 Use as instructed Active Blood Pressure Monitor kitIndications:[facility] hypertension Use to check blood pressure daily as directed 1 kit 09/03/19 24 Active Jardiance 25 MGIndications:Diab etes mellitus due to underlying condition with hyperglycemia, without long-term current use of insulin (HCC) TAKE 1 TABLET BY MOUTH EVERY MORNING 90 tablet 1 09/09/19 25 Active atorvastatin (Lipitor) 40 MG tabletIndications: Mixed hyperlipidemia TAKE 1 TABLET BY MOUTH EVERY MORNING 90 tablet 3 09/16/19 25 Active lisinopril-hydroCH LOROthiazide 20-25 MG tabletIndications: Essential hypertension Take 1 tablet by mouth in the morning. 90 tablet 03/27/20 25 Active pimecrolimus (Elidel) 1 % cream Apply topically 2 times daily. 60 g 03/27/20 25 025 Active Problems Problem Noted Date Diagnosed Date Contact dermatitis of upper and lower eyelids of both eyes 03/27/2025 Assessment & Plan (03/27/2025 3:44 PM EDT): Will use Elidel cream x 2 weeks plus OTC moisturizing cream on affected area Overweight 03/27/2025 Hearing loss 04/08/2024 Assessment & Plan (03/27/2025 3:46 PM EDT): Seen by dr Sotomayor last year, ordered new MRI as requested by radiology Assessment & Plan (04/08/2024 7:00 PM EDT): Pt w reported left ear severe hearing loss and one episode of vertigo now resolved Normal ENT exam -ENT referral STAT sent today - brain MRI w IAC eval given acuity of symptoms ,description of vertigo and normal ear exam -alarm signs and symptoms discussed today w pt Skin tag 12/13/2022 Assessment & Plan (12/13/2022 9:44 AM EDT): Left upper eyelid. Refer to ophthalmology for resection Cough 07/10/2022 Primary osteoarthritis of left knee 12/05/2017 Type 2 diabetes mellitus wit hout complication, without long-term current use of insulin 12/05/2017 Assessment & Plan (03/27/2025 3:43 PM EDT): Fairly controlled. A1c is at goal. Continue on Jardiance only counseled re more frequent low calorie/carb meals. Encouraged physical activity as tolerated. Order labs and follow-up with me in 4 to 6 weeks Refer to ophthalmology No evidence of DM neuropathy Assessment & Plan (07/04/2023 11:28 AM EST): Controlled. A1c is at goal. Continue on Jardiance + Metformin Counseled re more frequent low calorie/carb meals. Encouraged physical activity as tolerated. Assessment & Plan (04/19/2023 9:49 AM EDT): Controlled. A1c is at goal. Continue on Jaardiance and Metformin XR daily Counseled re more frequent low calorie/carb meals. Check fgstk 1x daily Encouraged physical activity as tolerated. FU in 2-3 months. Counseled to get Influenza vax at closest retail pharmacy Assessment & Plan (03/21/2023 12:10 PM EDT): Uncontrolled, worsening A1c. I discussed rx options with patient including Injectables 1x/w, sulfonylureas or other PO meds. He wanted to start daily meds, I will add Jardiance 25mg/d and fu w him TV in 4w. Continue life style modifications as previously Assessment & Plan (12/13/2022 9:42 AM EDT): A1C is not quite at goal yet. Increase metformin to 500mg BID and FU in 3 months. Counseled re more frequent low calorie/carb meals. Encouraged physical activity as tolerated. Optometry evaluation up to date. Assessment & Plan (08/30/2022 9:34 AM EST): Controlled. See notes from last month. No medication changes. FU in 3 months. Assessment & Plan (07/19/2022 10:01 AM EST): Controlled. A1c is at goal but slightly rising from previous. Continue on metformin XR 500mg/d. Counseled re more frequent low calorie/carb meals. Check fgstk 1x daily Encouraged physical activity as tolerated. FU in 6w. Diabetes mellitus due to und erlying condition with hyperglycemia, without long-term current use of insulin 12/05/2017 Assessment & Plan (01/28/2024 4:53 PM EDT): Controlled. A1c is at goal Continue on metformin XR 500mg/d + Jardiance. Counseled re more frequent low calorie/carb meals. Check fgstk 1x daily Encouraged physical activity as tolerated. FU in 3-4m. Assessment & Plan (01/28/2024 3:47 PM EDT): >>ASSESSMENT AND PLAN FOR TYPE 2 DIABETES MELLITUS WITHOUT COMPLICATION, WITHOUT LONG-TERM CURRENT USE OF INSULIN ([facility]) WRITTEN ON 07/19/2022 10:01 AM BY JENNIFER SPANN MD Controlled. A1c is at goal but slightly rising from previous. Continue on metformin XR 500mg/d. Counseled re more frequent low calorie/carb meals. Check fgstk 1x daily Encouraged physical activity as tolerated. FU in 6w. Assessment & Plan (01/28/2024 3:47 PM EDT): >>ASSESSMENT AND PLAN FOR TYPE 2 DIABETES MELLITUS WITHOUT COMPLICATION, WITHOUT LONG-TERM CURRENT USE OF INSULIN (CMS/HCC) WRITTEN ON 08/30/2022 9:34 AM BY CASTRO LOPEZ Controlled. See notes from last month. No medication changes. FU in 3 months. Assessment & Plan (01/28/2024 3:47 PM EDT): >>ASSESSMENT AND PLAN FOR TYPE 2 DIABETES MELLITUS WITHOUT COMPLICATION, WITHOUT LONG-TERM CURRENT USE OF INSULIN (CMS/HCC) WRITTEN ON 12/13/2022 9:42 AM BY CASTRO LOPEZ A1C is not quite at goal yet. Increase metformin to 500mg BID and FU in 3 months. Counseled re more frequent low calorie/carb meals. Encouraged physical activity as tolerated. Optometry evaluation up to date. Assessment & Plan (01/28/2024 3:47 PM EDT): >>ASSESSMENT AND PLAN FOR TYPE 2 DIABETES MELLITUS WITHOUT COMPLICATION, WITHOUT LONG-TERM CURRENT USE OF INSULIN (CMS/HCC) WRITTEN ON 03/21/2023 12:10 PM BY JENNIFER SPANN MD Uncontrolled, worsening A1c. I discussed rx options with patient including Injectables 1x/w, sulfonylureas or other PO meds. He wanted to start daily meds, I will add Jardiance 25mg/d and fu w him TV in 4w. Continue life style modifications as previously Assessment & Plan (01/28/2024 3:47 PM EDT): >>ASSESSMENT AND PLAN FOR TYPE 2 DIABETES MELLITUS WITHOUT COMPLICATION, WITHOUT LONG-TERM CURRENT USE OF INSULIN ([facility]/HCC) WRITTEN ON 04/19/2023 9:49 AM BY JENNIFER SPANN MD Controlled. A1c is at goal. Continue on Jaardiance and Metformin XR daily Counseled re more frequent low calorie/carb meals. Check fgstk 1x daily Encouraged physical activity as tolerated. FU in 2-3 months. Counseled to get Influenza vax at closest retail pharmacy Assessment & Plan (01/28/2024 3:47 PM EDT): >>ASSESSMENT AND PLAN FOR TYPE 2 DIABETES MELLITUS WITHOUT COMPLICATION, WITHOUT LONG-TERM CURRENT USE OF INSULIN ([facility]) WRITTEN ON 07/04/2023 11:28 AM BY HAILY GOOD Controlled. A1c is at goal. Continue on Jardiance + Metformin Counseled re more frequent low calorie/carb meals. Encouraged physical activity as tolerated. Leg pain, left 10/23/2017 Gastroesophageal reflux disease 06/04/2012 Hyperlipidemia 02/19/2012 Assessment & Plan (08/30/2022 9:36 AM EST): LDL is at goal. Continue Lipitor 40 mg qhs and check lipids and LFTs in a year. Recommended moderate amount of exercise and increased consumption of fruit, vegetables, fish and high fiber foods. We discussed avoiding consumption of highly saturated fats or trans fats. Assessment & Plan (07/19/2022 10:02 AM EST): Continue atorvastatin 40mg and check labs prior to next visit. Recommended moderate amount of exercise and increased consumption of fruit, vegetables, fish and high fiber foods. We discussed about avoiding consumption of highly saturated fats or trans fats. Hypertension 02/19/2012 Assessment & Plan (03/27/2025 3:42 PM EDT): >>ASSESSMENT AND PLAN FOR ESSENTIAL HYPERTENSION WRITTEN ON 07/19/2022 9:59 AM BY JENNIFER SPANN MD Uncontrolled. Compliant w/meds when he has them, has been out of refills x 3w Continue lisinopril/hctz Counseled re low salt diet/increase moderate physical activity. Check home BP BIW and prn CP/CORDERO/CRUZ Non smoking patient. Refer to ophto and fu w me in 6w w labs Assessment & Plan (03/27/2025 3:42 PM EDT): >>ASSESSMENT AND PLAN FOR ESSENTIAL HYPERTENSION WRITTEN ON 12/13/2022 9:41 AM BY CASTRO LOPEZ BP is at goal. Continue zestoretic , and FU in 4 months Check BMP Assessment & Plan (03/27/2025 3:42 PM EDT): Uncontrolled, he has been out of medication for 1 week. Refill for lisinopril/HCTZ sent to pharmacy, discussed with patient importance of getting refills on time and getting them through the pharmacy. Order labs and follow-up with me in 4 to 6 weeks Assessment & Plan (07/04/2023 11:27 AM EST): Controlled. Compliant w/meds. Repeated 120/85 Continue lisinopril/hctz same dose Counseled re low salt diet/increase moderate physical activity. Check home BP BIW and prn CP/CORDERO/CRUZ Non smoking patient. Patient will have Influenza + COVID iz today Assessment & Plan (08/30/2022 9:26 AM EST): BP is at goal. We discussed about the importance of medication compliance. Continue Zestoretic 20/25mg qday Encouraged to increase physical activity and limit sodium intake. FU in 3 months. Impaired fasting glucose 02/19/2012 Resolved Problems Problem Noted Date Diagnosed Date Resolved Date Colorectal cancer ([facility]/HCC) 12/13/2022 03/27/2025 Assessment & Plan (01/28/2024 3:46 PM EDT): He doesn't have colorectal cancer He's declined further colonoscopy after last one 10y ago. Assessment & Plan (12/13/2022 9:43 AM EDT): He had colonoscopy more than 10 hyears ago, unsure if he wants to repeat one I gave him information about cologuard FU at next visit Encounters Date Type Department Care Team Description 05/08/2025 Orders Only GENERIC EXTERNAL DATA DEPARTMENT Provider, Generic External Data 05/08/2025 Patient Outreach [facility] [address] [place] [phone] Jennifer Spann MD Medicare Annual Wellness Visit Initial (AWV unscheduled) 03/27/2025 11:45 AM EDT Office Visit [facility] [address] [place] [phone] Jennifer Spann MD Type 2 diabetes mellitus without complication, without long-term current use of insulin ([facility]) (Primary Dx); Primary hypertension; Overweight; Contact dermatitis of upper and lower eyelids of both eyes; Exercise counseling; Dietary counseling; Hearing loss of left ear, unspecified hearing loss type; Essential hypertension 03/27/2025 Travel 03/26/2025 Telephone [facility] [address] [place] [phone] Jennifer Spann MD chart prep 03/20/2025 Patient Outreach [facility] [address], [place] [phone] Jennifer Spann MD Pre-visit Planning ([facility] unable to reach [facility] ) from Last 3 Months Immunizations Immunization Administration Dates Next Due Influenza High-dose Quadriva lent Preservative Free 07/04/2023,05/31/2022,05/25/2020 Influenza injectable quadriv alent IIV4 with preservative 05/10/2018,07/06/2015 Influenza injectable quadriv alent preservative free 06/29/2021,06/19/2019 Influenza, High Dose Seasona l, Preservative Free 05/14/2024 Influenza, IIV3, injectable 06/29/2014,1 08/19/2010,06/16/2008,06/24 Influenza, Split (incl. ophelia fied surface antigen) 07/01/2013,06/04/2012 Moderna Covid-19 Vaccine 12+ 06/29/2021,10/20/19 21,09/21/2020 Pfizer Covid-19 Vaccine 12+ 05/14/2024, 3,12/23/2021 Pfizer Covid-19 Vaccine 12+ Bivalent 05/31/2022 Pfizer Covid-19 Vaccine 12+ prasad-sucrose (Paulino Cap) 12/23/2021 Pneumococcal Conjugate PCV 20 11/11/2021 Pneumococcal Polysaccharide PPSV23 09/29/2009 Td (adult), 5 Lf tetanus tox oid, preservative free, adsorbed 12/13/2022 Tdap 01/20/2009 Social History Tobacco Use Types Packs/Day Years Used Date Smoking Tobacco: Former Cigarettes Smokeless Tobacco: Never Tobacco Cessation:Counseling Given: Not Answered Alcohol Use Standard Drinks/Week Comments Yes 0 [...] not to disclose 2021 10:21 AM EDT Last Filed Vital Signs Vital Sign Reading Time Taken Comments Blood Pressure 160/100 03/27/2025 11:46 AM EDT Pulse 96 03/27/2025 11:46 AM EDT Temperature 36.7 C (98 F) 03/27/2025 11:46 AM EDT Respiratory Rate 20 03/27/2025 11:46 AM EDT Oxygen Saturation 97% 04/08/2024 1:50 PM EDT Inhaled Oxygen Concentration - - Weight 86.2 kg (190 lb) 03/27/2025 11:46 AM EDT Height 170.2 cm (5' 7 ) 03/27/2025 11:46 AM EDT Body Mass Index 29.76 03/27/2025 11:46 AM EDT Plan of Treatment Upcoming Encounters Date Type Department Care Team (Late st Contact Info) Description 05/29/2025 11:15 AM EDT Office Visit [facility] [address], [place] [phone] Jennifer Spann MD [address] [place] [address] 07/07/2025 1:00 PM EST Office Visit [facility] [address] [place], [place] [phone] Zoë Sanchez, OD [address] [place], [place] [phone] Health Maintenance Due Date Last Done Comments Hepatitis C Screening 1968 Zoster Vaccines (1 of 2) 1998 Diabetes: Urine Protein Screening 03/09/2021 03/09/2020 RSV Patients and Patients Aged 60 years or older (1 - 1-dose 75+ series) 2023 Lipid Panel 08/25/2023 08/25/2022, 06, 10/21/2020 Eye Exam 09/13/2024 09/13/2022, 0203/2023, 09/13/2022, Additional history exists Diabetes: Foot Exam 01/27/2025 01/28/2024, 01/28/2024, 01/28/2024, Additional history exists COVID-19 Vaccine (2023- season) 2025 05/14/2024, 07/04/2023, 05/31/2022, Additional history exists Influenza Vaccine (#1) 2025 , 07/04/2023, 05/31/2022, Additional history exists Diabetes: Hemoglobin A1C 06/27/2025 025, 03/27/2025, 01/28/2024, Additional history exists Alcohol/Substance Use Screening 03/27/2026 03/27/2025 Depression Screening 03/27/2026 03/27/2025, 03/27/20 25 SDOH Screening 03/27/2026 03/27/2025 Tobacco Screening 03/27/2026 03/27/2025 DTaP/Tdap/Td Vaccines (3 - Td or Tdap) 12/13/2032 12/13/2022, 01/20/2009 Pneumococcal Vaccine: 50+ Years Completed 11/11/2021, 09/29/2009 HIB Vaccines Aged Out No longer eligi ble based on patient's age to complete this topic HPV Vaccines Aged Out No longer eligi ble based on patient's age to complete this topic Hepatitis A Vaccines Aged Out No long er eligible based on patient's age to complete this topic Hepatitis B Vaccines Aged Out No long er eligible based on patient's age to complete this topic IPV Vaccines Aged Out No longer eligi ble based on patient's age to complete this topic Meningococcal B Vaccine Aged Out No l onger eligible based on patient's age to complete this topic Meningococcal Vaccine Aged Out No theresa pedrito eligible based on patient's age to complete this topic RSV under 20 months Aged Out No longe r eligible based on patient's age to complete this topic Rotavirus Vaccines Aged Out No longer eligible based on patient's age to complete this topic Goals Goal Patient Goal Type Associated Problems Recent Progress Patient-Stated? Author Blood Pressure < 140/90 Blood Pressure 160/100(2024 11:46 AM EDT) Boni Berrios, Tracy Procedures Procedure Name Priority Date/Time Associated Diagnosis Comments TSH Routine 05/08/2025 10:00 AM EDT NT-PROBNP Routine 05/08/2025 10:00 AM EDT HIGH SENSITIVITY TROPONIN I Routine 05/08/2025 10:00 AM EDT MAGNESIUM Routine 05/08/2025 10:00 AM EDT COMPREHENSIVE METABOLIC PANEL Routine 05/08/2025 10:00 AM EDT HEMOGLOBIN A1C Routine 05/08/2025 10:00 AM EDT CBC WITH AUTO DIFFERENTIAL Routine 05/08/2025 10:00 AM EDT POCT GLYCATED HEMOGLOBIN, TOTAL Routine 03/27/2025 11:51 AM EDT Type 2 diabetes mellitus without complication, without long-term current use of insulin ([facility]) POCT GLUCOSE Routine 03/27/2025 11:50 AM EDT Type 2 diabetes mellitus without complication, without long-term current use of insulin ([facility]) LIPID PANEL, STANDARD Routine 08/25/2022 8:38 AM EST Essential hypertension Mixed hyperlipidemia ALBUMIN, RANDOM URINE W/CREATININE Routine 03/09/2020 8:40 AM EDT from Last 3 Months or Most Recently Relevant to Health Maintenance Results * High Sensitivity Troponin I (05/08/2025 10:00 AM EDT) Pathologist [facility] TROPONIN I HIGH SENSITIVITY <2.7 <3.5 - 35.0 ng/L [facility] Comment:The [facility] high sens itivity Troponin-I results should beused in conjunction with other diagnostic information suchas ECG, clinical observations and information, and patientsymptoms to aid in the diagnosis of MT. 05/08/2025 10:0 0 AM EDT 05/08/2025 10:05 AM EDT us Generic External Data Provider LAB BLOOD ORDERAB LES Final Result [facility] [address] [place] [phone] * NT-proBNP (05/08/2025 10:00 AM EDT) Pathologist [facility] NT-proBNP <15.8 <300 pg/mL [facility] Comment:Reference Range:Age Group (years) NT-proBNP (pg/ml) InterpretationAll <300 Negative: HF unlikelyFor patients presenting to the ED with clinical suspicion ofnew onset or worsening HF, see below:18 to <50 >299.9 to <450.0 Grayzone: Qigainup87 to 75 >299.9 to <900.0 other causes of>75 >299.9 to <1800.0 NT-proBNP xlkupvfxe18 to <50 >449.9 Positive: HF fcaltc76-90 >899.9>75 >1799.9Note: Elevated NT-proBNP levels should be interpreted inthe context of other clinical information. 05/08/2025 10:0 0 AM EDT 05/08/2025 10:05 AM EDT us Generic External Data Provider LAB BLOOD ORDERAB LES Final Result [facility] [address] [place] [phone] * (ABNORMAL) CBC auto differential (05/08/2025 10:00 AM EDT) White Blood Count 6.1 4.8 - 10.8 X10*3/uL [facility] Red Blood Count 5.29 4.60 - 5.80 X10*6/uL [facility] Hemoglobin 16.0 14.0 - 18.0 g/dl [facility] Hematocrit 45.2 42.0 - 52.0 % [facility] Mean Corpuscular Volume 85.4 80.0 - 98.0 fL [facility] Mean Corpuscular Hemoglobin 30.2 27.0 - 33.0 pg [facility] Mean Corpuscular HGB Conc 35.4 31.0 - 36.0 g/dl [facility] Red Cell Distribution Width 12.5 11.0 - 16.0 % [facility] Platelet Count 211 160 - 400 X10*3/uL [facility] Mean Platelet Volume 8.9(L) 9.4 - 12.4 fL [facility] Neutrophils Percent Auto 65.7 45 - 73 % [facility] Imm Gran Pct Auto 0.3 0.0 - 0.4 % [facility] Lymphocytes Percent Auto 21.3 20 - 40 % [facility] Monocytes Percent Auto 11.4(H) 2 - 11 % [facility] Eosinophils Percent Auto 0.8 0 - 4 % [facility] Basophils Percent Auto 0.5 0 - 2 % [facility] NRBC Pct Auto 0.0 0.0 - 0.2 /100WBC [facility] Neutrophils Absolute Auto 4.0 2.0 - 8.3 x10*3/uL [facility] Imm Gran Abs Auto 0.02 0.00 - 0.03 X10*3/uL [facility] Lymphocytes Absolute Auto 1.3 1.2 - 4.9 X10*3/uL [facility] Monocytes Absolute Auto 0.7 0.1 - 1.2 X10*3/uL [facility] Eosinophils Absolute Auto 0.1 0.0 - 0.4 X10*3/uL [facility] Basophils Absolute Auto 0.0 0.0 - 0.2 X10*3/uL [facility] NRBC Abs Auto 0.000 0.0 - 0.012 X10*3/uL [facility] 05/08/2025 10:0 0 AM EDT 05/08/2025 10:05 AM EDT us Generic External Data Provider LAB BLOOD ORDERAB LES Final Result Performing Organization Address City/[facility]/ZIP Co de Phone Number [facility] [address] [place] [phone] * TSH (05/08/2025 10:00 AM EDT) Thyroid Stimulating Hormone 0.59 0.32 - 4.0 uIU/mL [facility] Comment:TSH 3rd Generation ( [facility]) 05/08/2025 10:0 0 AM EDT 05/08/2025 10:05 AM EDT us Generic External Data Provider LAB BLOOD ORDERAB LES Final Result [facility] [address] [place] [phone] * Magnesium (05/08/2025 10:00 AM EDT) Magnesium 1.8 1.6 - 2.6 mg/dL [facility] 05/08/2025 10:0 0 AM EDT 05/08/2025 10:05 AM EDT Generic External Data Provider LAB BLOOD ORDERAB LES Final Result Performing Organization Address City/[facility]/ZIP Co de Phone Number [facility] [address] [place] [phone] * (ABNORMAL) Hemoglobin A1c (05/08/2025 10:00 AM EDT) Pathologist [facility] Hemoglobin A1c 7.7(H) <6.0 % [facility] Comment:Hemoglobin A1C Refer ence Range Adults: 4.8 - 6.0 % Non diabetic: < 6.0 % Goal: < 7.0 %Additional Action Suggested: > 8.0 %Note: Hemoglobin A1c results are invalid for patients with abnormal amounts of HbF. Blood transfusions may impact the HbA1c concentration in the patient sample. Estimated Average Glucose 174 mg/dL [facility] Comment:eAG = Estimated ave rage glucose which is %A1C expressed asaverage glucose, using the formula of the P3S-YitzedcNzrmvex Glucose study (ADAG), Diabetes Care, Vol.31,#8,Mar. 2007 05/08/2025 10:0 0 AM EDT 05/08/2025 10:05 AM EDT us Generic External Data Provider LAB BLOOD ORDERAB LES Final Result Performing Organization Address [facility]/ZIP Co de Phone Number [facility] [address] [place] [phone] * (ABNORMAL) Comprehensive Metabolic Panel (05/08/2025 10:00 AM EDT) Pathologist [facility] Sodium 137 135 - 145 mmol/L [facility] Potassium 3.7 3.3 - 5.1 mmol/L [facility] Chloride 101 96 - 108 mmol/L [facility] Carbon Dioxide 28 22 - 29 mmol/L [facility] Anion Gap 12 12 - 20 [facility] Urea Nitrogen (BUN) 20(H) 9 - 16 mg/dL [facility] Creatinine, Serum 1.02 0.5 - 1.4 mg/dL [facility] Creatinine Clr Calc Pharmacy 60.6 [facility] Comment:eGFR (calculated fro m the MDRD study equation) and eCrCl(calculated from the Cockcroft-Gault equation) are based ondifferent parameters and may not yield comparable results.If eCrCl result is absurd, please check patient'sheight/weight. Estimated Glomerular Filt Rate >60 [facility] Comment:Chronic Kidney Disea se: Estimated GFR < 60 mL/min/[id number] Kidney Disease: Estimated GFR < 15 mL/min/1.73m2 Glucose 267(H) 60 - 115 mg/dL [facility] Calcium 10.2 8.4 - 10.2 mg/dL [facility] Bilirubin, Total 1.1(H) 0.0 - 1.0 mg/dL [facility] Aspartate Amino Transferase 20 5 - 37 U/L [facility] Alanine Aminotransferase 22 0 - 40 U/L [facility] Total Protein 7.9 6.5 - 8.0 g/dL [facility] Albumin Level 4.5 3.5 - 5.0 g/dL [facility] Alkaline Phosphatase 101 39 - 117 U/L [facility] 05/08/2025 10:0 0 AM EDT 05/08/2025 10:05 AM EDT us Generic External Data Provider LAB BLOOD ORDERAB LES Final Result [facility] [address] [place] [phone] * (ABNORMAL) POCT HGB A1C (03/27/2025 11:51 AM EDT) Hemoglobin A1C 7.2(A) 4.0 - 5.7 % QC Media Lot # [id number] Lot# Expiration Date ,351 Blood 03/27/2025 11:5 1 AM EDT Jennifer Spann MD POINT OF CARE TEST ENTER /EDIT ORDERABLES Final Result * (ABNORMAL) POCT Glucose (03/27/2025 11:50 AM EDT) Glucose Blood, POC 261(A) 60 - 200 mg/dL [employer] Media Lot # [id number] Lot# Expiration Date Blood Capillary blood specimen / Unknown 03/27/2025 11:50 AM EDT Jennifer Spann MD POINT OF CARE TEST ENTER /EDIT ORDERABLES Final Result * (ABNORMAL) Lipid Panel, Standard (08/25/2022 8:38 AM EST) [facility] Cholesterol, Total 119 <200 mg/dL [email or web address] [place] [facility] HDL Cholesterol 28(L) > OR = 40 mg/dL [facility] [place] [facility] Triglycerides 118 <150 mg/dL [facility] [place] [facility] LDL Cholesterol 71 mg/dL (calc) [facility] Comment: Reference range: <100 Desirable range <100 mg/dL for primary prevention; <70 mg/dL for patients with CHD or diabetic patients with > or = 2 CHD risk factors. LDL-C is now calculated using the Keon-Elana calculation, which is a validated novel method providing better accuracy than the Friedewald equation in the estimation of LDL-C. Keon GOMEZ et al. WENDY. 2013;310(19): 9637-0857 (http://education.[employer]/faq/IAS947) Chol/HDLC Ratio 4.3 <5.0 (calc) [email or web address] [place] [facility] Non-HDL Cholesterol 91 <130 mg/dL (calc) [email or web address] [place] [facility] Comment: For patients with diabetes plus 1 major ASCVD risk factor, treating to a non-HDL-C goal of <100 mg/dL (LDL-C of <70 mg/dL) is considered a therapeutic option. Blood Venous blood specimen / Unknown 08/25/2022 8:38 AM EST 08/25/2022 8:38 AM EST Narrative [facility] - 08/26/2022 12:09 AM EST FASTING:YES FASTING: YES us Jennifer Spann MD LAB BLOOD ORDERABLES Fin al Result [facility] [address] [facility], [address], [place] [phone] [email or web address] [address] [facility], ([address]) [place] [address] * ALBUMIN, RANDOM URINE W/CREATININE (03/09/2020 8:40 AM EDT) Creatinine, Urine 277 20 - 320 mg/dL [facility] Microalbumin Urine 3.6 See Note: mg/dL [facility] Comment: Reference Range: Reference Range Not established Microalb/Creat Ratio 13 <30 mcg/mg creat [facility] Comment: The ADA defines abnormalities in albumin excretion as follows: Category Result (mcg/mg creatinine) Normal <30 Microalbuminuria 30-299 Clinical albuminuria > OR = 300 The ADA recommends that at least two of three specimens collected within a 3-6 month period be abnormal before considering a patient to be within a diagnostic category. 03/09/2020 8:40 AM EDT us Jennifer Spann MD LAB URINE ORDERABLES Fin al Result [facility] [address] from Last 3 Months or Most Recently Relevant to Health Maintenance Insurance MEDICARE Care Teams Repairer [employer] Relationship Specialty Start Date End Date Jennifer Spann MD [address] [place] [address] PCP - General Family Medicine 03/21/17
--- OUTSIDE RECORDS SUMMARY | 2025-05-08 10:54 | XMS_ITS | Encounter Summary ---
Author Organization [employer] Address [address] [place] [address] [address] [place] [address] Care Team Providers Care Custodian [employer] Equipment Name Role Phone Anju Martínez MD Primary Care Provider + Boni Shetty PharmD Unavailable [phone] Encounter Details Date Type Department Care Team (Late st Contact Info) Description 07/18/2022 Abstract [facility] [address] [place] [address] [phone] Anju Martínez MD [address] [place] [address] [phone] Social History Tobacco Use Types Packs/Day Years Used Date Smoking Tobacco: Never Assessed Sex and Gender Information Value Date Recorded Sex Assigned at Male 06/05/2022 10:21 AM EDT Legal Sex Male 10:21 AM EDT Gender Identity Male 06/05/2022 10:21 AM EDT Sexual Orientation Choose not to disclose 2021 10:21 AM EDT COVID-19 Exposure Response Date Recorded In the last 10 days, have yo u been in contact with someone who was confirmed or suspected to have Coronavirus/COVID-19? No / Unsure 07/19/2022 9:10 AM EST documented as of this encounter Plan of Treatment Upcoming Encounters Date Type Department Care Team (Late st Contact Info) Description 05/29/2025 11:15 AM EDT Office Visit [facility] [address] [place] [address] [phone] Anju Martínez MD [address] [place] [address] [phone] 07/07/2025 1:00 PM EST Office Visit [facility] [address] [place] [address] Zoë Sanchez, OD [address] [place] [address] documented as of this encounter Visit Diagnoses Not on filedocumented in this encounter Care Teams Custodian Athletic Equipment Relationship Specialty Start Date End Date Anju Martínez MD [address] [place] [address] PCP - General Family Medicine 03/21/17 Boni Shetty, Tracy [address] [place] [phone] Pharmacist Internal Medicine 02/05/23 05/14/24 documented as of this encounter
[2025-05-08 11:25] VITALS: BP 143/100; PULSE 88; RESP 16; TEMP 36.1; O2SAT 98
== END 2025-05-08 11:29 | disposition home or self-care (01) ==
PROVIDERS: Emergency Provider Emergency Medicine
DX: I47.9 Paroxysmal tachycardia, unspecified (principal); E11.9 Type 2 diabetes mellitus without complications; I10 Essential (primary) hypertension; R00.2 Palpitations; Z79.84 Long term (current) use of oral hypoglycemic drugs
CPT/HCPCS: 36415; 80053; 83036; 83735; 83880; 84443; 84484; 85025; 93005; 99283

== ENCOUNTER → 2025-05-08 09:17 | Outpatient (BNV) | payer MEDICARE, SELFPAY | PROVIDERS: Emergency Provider Emergency Medicine; Visit Provider Internal Medicine | DX: R94.31 Abnormal electrocardiogram [ECG] [EKG] (principal); R00.2 Palpitations | CPT/HCPCS: 93010 ==

== ENCOUNTER 2025-05-27 09:51 | Outpatient (REF) | payer MEDICARE, SELFPAY ==
[2025-05-27 12:30] LABS: Anion Gap 9 (12-20); Blood Urea Nitrogen 15 mg/dL (9-16); Calcium 10.0 mg/dL (8.4-10.2); Carbon Dioxide 30 mmol/L (22-29); Chloride 104 mmol/L (96-108); Cholesterol 204 mg/dL (<200); Estimated Glomerular Filt Rate > 60; HDL Cholesterol 38 mg/dL (>40); Potassium 3.6 mmol/L (3.3-5.1); Sodium 139 mmol/L (135-145); Triglycerides 148 mg/dL (<150)
[2025-05-27 12:38] LABS: Microalbum/Creatinine Ratio Ur 8.2 ug/mg cr (<30)
[2025-05-27 12:40] LABS: Reflex LDLD? No
== END 2025-05-27 09:52 | disposition home or self-care (01) ==
LOC: HO.HHCL 09:51
PROVIDERS: PCP Internal Medicine; Visit Provider Internal Medicine
DX: I10 Essential (primary) hypertension (principal); E11.9 Type 2 diabetes mellitus without complications
CPT/HCPCS: 36415; 80048; 80061; 82043; 82570

== ENCOUNTER → 2025-06-15 07:47 | Outpatient (REF) | payer MEDICARE, SELFPAY ==
--- OUTSIDE RECORDS SUMMARY | 2025-06-15 07:50 | XMS_ITS | Clinical Summary ---
Author Organization [employer] Address [address] [place] [address] [address] [place] [address] Care Team Providers Care Stain Wiper Name Role Phone Anju Spann MD Primary Care Provider + Allergies [...] as directed 1 kit 09/03/19 24 Active atorvastatin (Lipitor) 40 MG tabletIndications: Mixed hyperlipidemia TAKE 1 TABLET BY MOUTH EVERY MORNING 90 tablet 3 09/16/19 25 Active lisinopril-hydroCH LOROthiazide 20-25 MG tabletIndications: Essential hypertension Take 1 tablet by mouth in the morning. 90 tablet 03/27/20 25 Active empagliflozin-metF ORMIN ER (Synjardy XR) 5-1000 MG 24 hr tablet Take 1 tablet by mouth with breakfast. 30 tablet 11 05/29/20 25 026 Active Jardiance 25 MGIndications:Diab etes mellitus due to underlying condition with hyperglycemia, without long-term current use of insulin (HCC) TAKE 1 TABLET BY MOUTH EVERY MORNING 90 tablet 1 09/09/19 25 025 Discontin ued(Dose adjustmen t) Active Problems Problem Noted Date Diagnosed Date Palpitations 05/29/2025 Assessment & Plan (05/29/2025 5:12 PM EDT): Apparently related to activity, I will order a Holter monitor to rule out any other underlying arrhythmia. Discussed with patient regarding importance of tight control of diabetes and hypertension. Contact dermatitis of upper and lower eyelids [...] use of insulin 12/05/2017 Assessment & Plan (05/29/2025 5:20 PM EDT): Most likely uncontrolled. Follow-up A1c in 3 months I will continue switch to Synjardy XR to simplify regimen and improve compliance given the patient is already using metformin from a relative Counseled re more frequent low calorie/carb meals. Check fgstk 1x daily Encouraged physical activity as tolerated. FU in 3 months. Nichole influenza and COVID immunization today Assessment & Plan (03/27/2025 3:43 PM EDT): [...] CURRENT USE OF INSULIN (CMS/HCC) WRITTEN ON 07/19/2022 10:01 AM BY ANJU SPANN MD Controlled. A1c is at goal [...] (CMS/HCC) WRITTEN ON 03/21/2023 12:10 PM BY ANJU SPANN MD Uncontrolled, worsening A1c. I discussed [...] COMPLICATION, WITHOUT LONG-TERM CURRENT USE OF INSULIN (CMS/[facility]) WRITTEN ON 04/19/2023 9:49 AM BY ANJU SPANN MD Controlled. A1c is at goal. [...] COMPLICATION, WITHOUT LONG-TERM CURRENT USE OF INSULIN (CMS/[facility]) WRITTEN ON 07/04/2023 11:28 AM BY HAILY GOOD Controlled. A1c is at goal. Continue on Jardiance + Metformin Counseled re more frequent low calorie/carb meals. Encouraged physical activity as tolerated. Leg pain, left 10/23/2017 Gastroesophageal reflux disease 06/04/2012 Hyperlipidemia 02/19/2012 Assessment & Plan (05/29/2025 5:13 PM EDT): - No change to l atorvastatin therapy at this time. - He will focus on improving glycemic control. Reassess cholesterol in 6 to 12- month; if levels remain elevated, consider adjusting medication. -Recommended moderate amount of exercise and increase consumption of fruit, vegetables, fish and high fiber foods. Should decrease consumption of highly saturated fats or trans fats. Assessment & Plan (08/30/2022 9:36 AM EST): [...] trans fats. Hypertension 02/19/2012 Assessment & Plan (05/29/2025 5:12 PM EDT): Much better controlled, continue lisinopril/HCTZ Assessment & Plan (03/27/2025 3:42 PM EDT): >>ASSESSMENT AND PLAN FOR ESSENTIAL HYPERTENSION WRITTEN ON 07/19/2022 9:59 AM BY ANJU SPANN MD Uncontrolled. Compliant w/meds when he [...] Date Diagnosed Date Resolved Date Colorectal cancer (CMS/HCC) 12/13/2022 03/27/2025 Assessment & Plan (01/28/2024 3:46 PM EDT): He doesn't have colorectal cancer He's declined further colonoscopy after last one 10y ago. Assessment & Plan (12/13/2022 9:43 AM EDT): He had colonoscopy more than 10 hyears ago, unsure if he wants to repeat one I gave him information about cologuard FU at next visit Encounters Date Type Department Care Team Description 05/29/2025 11:15 AM EDT Office Visit [address] [address] Anju Spann MD Primary hypertension (Primary Dx); Mixed hyperlipidemia; Type 2 diabetes mellitus without complication, without long-term current use of insulin (HCC); Palpitations; Encounter for vaccination; Encounter for immunization 05/29/2025 Travel 05/28/[address] [address] Anju Spann MD Chart Prep 05/08/2025 Orders Only GENERIC EXTERNAL DATA DEPARTMENT Provider, Generic External Data 05/08/2025 Patient Outreach [address] [address] Anju Spann MD Medicare Annual Wellness Visit Initial (AWV unscheduled) 03/27/2025 11:45 AM EDT Office Visit [address] [address] Anju Spann MD Type 2 diabetes mellitus without complication, without long-term current use of insulin (CMS/HCC) (Primary Dx); Primary hypertension; Overweight; Contact dermatitis of upper and lower eyelids of both eyes; Exercise counseling; Dietary counseling; Hearing loss of left ear, unspecified hearing loss type; Essential hypertension 03/27/2025 Travel 03/26/[address] [facility] [address] [place] [address] Anju Spann MD chart prep 03/20/2025 Patient Outreach [facility] [address] [place] [address] Anju Spann MD Pre-visit Planning ([facility] unable to reach [facility] ) from Last 3 Months Immunizations Immunization Administration Dates Next Due Influenza High-dose Quadriva lent Preservative Free 07/04/2023,05/31/2022,05/25/2020 Influenza injectable quadriv alent IIV4 with preservative 05/10/2018,07/06/2015 Influenza injectable quadriv alent preservative free 06/29/2021,06/19/2019 Influenza, High Dose Seasona l, Preservative Free 05/29/2025,05/14/2024 Influenza, IIV3, injectable 06/29/2014,1 08/19/2010,06/16/2008,06/24 Influenza, Split (incl. ophelia fied surface antigen) 07/01/2013,06/04/2012 Moderna Covid-19 Vaccine 12+ 06/29/2021,10/20/19 21,09/21/2020 Pfizer Covid-19 Vaccine 12+ 05/29/2025,1 ,07/04/2023,12/23 Pfizer Covid-19 Vaccine 12+ Bivalent 05/31/2022 Pfizer [...] Date Recorded Patient Health Questionnaire-9 Score 0 05/29/2025 Patient Health Questionnaire-9 Score 0 05/29/2025 Last PHQ-9: Questionnaire Data Not on file 1 Housing Stability Answer Date Recorded What is [...] Date Recorded Patient Health Questionnaire-2 Score 0 05/29/2025 Internet Access Answer Date Recorded Internet Access [...] Sign Reading Time Taken Comments Blood Pressure 110/70 05/29/2025 11:47 AM EDT Pulse 78 05/29/2025 11:47 AM EDT Temperature 36.4 C (97.6 F) 05/29/2025 11:47 AM EDT Respiratory Rate 18 05/29/2025 11:47 AM EDT Oxygen Saturation 97% 04/08/2024 1:50 PM EDT Inhaled Oxygen Concentration - - Weight 85.5 kg (188 lb 9.6 oz) 05/29/2025 11:47 AM EDT Height 170.2 cm (5' 7 ) 05/29/2025 11:47 AM EDT Body Mass Index 29.54 05/29/2025 11:47 AM EDT Plan of Treatment Upcoming Encounters Date Type Department Care Team (Late st Contact Info) Description 07/07/2025 1:00 PM EST Office Visit [facility] [address] [place], [place] [phone] Zoë Sanchez, OD [address] [place] [address] 08/26/2025 9:15 AM EST Office Visit [facility] [address] [place] [address] Anju Spann MD [address] [place], [place] [phone] Health Maintenance Due Date Last Done Comments Hepatitis C Screening 1966 Zoster Vaccines (1 of 2) 1998 RSV Patients and Patients Aged 60 years or older (1 - 1-dose 75+ series) 2023 Eye Exam 09/13/2024 09/13/2022, 03/2023, 09/13/2022, Additional history exists Diabetes: Foot Exam 01/27/2025 01/28/2024, 01/28/2024, 01/28/2024, Additional history exists Diabetes: Hemoglobin A1C 08/08/2025 025, 03/27/2025, 01/28/2024, Additional history exists SDOH Screening 03/27/2026 03/27/2025 Diabetes: Urine Protein Screening 05/27/2026 05/27/2025, 03/09/2020 Lipid Panel 05/27/2026 05/27/2025, 08/07, 01/13/2022, Additional history exists Alcohol/Substance Use Screening 05/29/2026 05/29/2025 Depression Screening 05/29/2026 05/29/2025, 05/29/20 25 Tobacco Screening 05/29/2026 05/29/2025 DTaP/Tdap/Td Vaccines (3 - Td or Tdap) 12/13/2032 12/13/2022, 01/20/2009 Pneumococcal Vaccine: 50+ Years Completed 11/11/2021, 09/29/2009 COVID-19 Vaccine Completed 05/29/2025, 04/2024, 07/04/2023, Additional history exists Influenza Vaccine Completed 05/29/2025, , 07/04/2023, Additional history exists HIB Vaccines Aged Out No longer eligi [...] Author Blood Pressure < 140/90 Blood Pressure 110/70( 025 11:47 AM EDT) No Boni Shetty, Tracy Procedures Procedure Name Priority Date/Time Associated Diagnosis Comments POCT GLUCOSE Routine 05/29/2025 11:48 AM EDT Type 2 diabetes mellitus without complication, without long-term current use of insulin (HCC) BASIC METABOLIC PANEL Routine 05/27/2025 9:56 AM EDT Primary hypertension LIPID PANEL WITH REFLEX TO DIRECT LDL Routine 05/27/2025 9:56 AM EDT Type 2 diabetes mellitus without complication, without long-term current use of insulin (HCC) ALBUMIN, RANDOM URINE W/CREATININE Routine 05/27/2025 9:56 AM EDT Type 2 diabetes mellitus without complication, without long-term current use of insulin (HCC) TSH Routine 05/08/2025 10:00 AM EDT NT-PROBNP [...] complication, without long-term current use of insulin ([facility]) POCT GLUCOSE Routine 03/27/2025 11:50 AM EDT Type 2 diabetes mellitus without complication, without long-term current use of insulin ([facility]) from Last 3 Months Results * (ABNORMAL) POCT Glucose (05/29/2025 11:48 AM EDT) Only the most recent of2 resultswithin the time period is included. Glucose Blood, POC 240(A) 60 - 200 mg/dL Blood Capillary blood specimen / Unknown 05/29/2025 11:48 AM EDT us Anju Spann MD POINT OF CARE TEST ENTER /EDIT ORDERABLES Final Result * (ABNORMAL) Lipid Panel with Reflex to Direct LDL (05/27/2025 9:56 AM EDT) Triglycerides 148 <150 mg/dL [facility] Comment:Desirable Triglyceri de: less than 150 mg/dLBorderline High Triglyceride 150-199 mg/dLHigh Triglyceride: 200-499 mg/dLVery High Triglyceride: greater than or equal to 5OO mg/dL Cholesterol 204(H) <200 mg/dL [facility] Comment:Desirable Cholestero l: less than 200 mg/dLBorderline High Cholesterol: 200-239 mg/dLHigh Cholesterol: greater than 239 mg/dL LDL Cholesterol Calculated 137(H) <100 mg/dL [facility] Comment:Desirable LDL: less than 100 mg/dLNear Optimal/Above Optimal LDL: 110- 129 mg/dLBorderline High LDL: 130-159 mg/dLHigh LDL: 160-189 mg/dLVery High LDL: greater than or equal to 190 mg/dL HDL Cholesterol 38(L) >40 mg/dL [facility] Comment:Desirable HDL: great er than 40 mg/dL Note: This HDL assay may give artificially low results in patients with liver disease. Blood 05/27/2025 9:56 AM EDT 05/27/2025 11:26 AM EDT us Anju Spann MD LAB BLOOD ORDERABLES Fin al Result Performing Organization Address [facility] Co de Phone Number [facility] [address] [place] [phone] * Albumin, Random Urine W/Creatinine (05/27/2025 9:56 AM EDT) Creatinine, Urine 108.60 mg/dL [facility] Microalbumin Urine 9.0 mg/L [facility] Microalbum Creatinine Ratio Ur 8.2 <30 ug/mg cr [facility] Comment:Albumin/Creatinine R atio Reference Ranges: Normal: < 30 ug/mg creatinine Microalbuminuria: 30 - 300 ug/mg creatinineClinical Albuminuria: > 300 ug/mg creatinine Urine (Urine, Random) 05/27/2025 9:56 AM EDT 05/27/2025 11:27 AM EDT us Anju Spann MD LAB URINE ORDERABLES Fin al Result Performing Organization Address City/[facility]/ZIP Co de Phone Number [facility] [address] [place] [phone] * (ABNORMAL) Basic Metabolic Panel (05/27/2025 9:56 AM EDT) [facility] Sodium 139 135 - 145 mmol/L [facility] Potassium 3.6 3.3 - 5.1 mmol/L [facility] Chloride 104 96 - 108 mmol/L [facility] Carbon Dioxide 30(H) 22 - 29 mmol/L [facility] Anion Gap 9(L) 12 - 20 [facility] Urea Nitrogen (BUN) 15 9 - 16 mg/dL [facility] Creatinine, Serum 0.93 0.5 - 1.4 mg/dL [facility] Estimated Glomerular Filt Rate >60 [facility] Comment:Chronic Kidney Disea se: Estimated GFR < 60 mL/min/1.15x4Tfidcu Kidney Disease: Estimated GFR < 15 mL/min/1.73m2 Glucose 153(H) 60 - 115 mg/dL [facility] Calcium 10.0 8.4 - 10.2 mg/dL [facility] Blood Venous blood specimen / Unknown 05/27/2025 9:56 AM EDT 05/27/2025 11:26 AM EDT Anju Spann MD LAB BLOOD ORDERABLES Fin al Result [facility] [address] [place] [phone] * High Sensitivity Troponin I (05/08/2025 10:00 AM EDT) Pathologist [facility] TROPONIN I HIGH SENSITIVITY <2.7 <3.5 - 35.0 ng/L [facility] Comment:The [employer] high sens itivity Troponin-I results should beused in conjunction with other diagnostic information suchas ECG, clinical observations and information, and patientsymptoms to aid in the diagnosis of IA. 05/08/2025 10:0 0 AM EDT 05/08/2025 10:05 AM EDT Generic External Data Provider LAB BLOOD ORDERAB LES Final Result Performing Organization Address [facility]/ZIP Co de Phone Number [facility] [address] [place] [phone] * NT-proBNP (05/08/2025 10:00 AM EDT) NT-proBNP <15.8 <300 pg/mL [facility] Comment:Reference Range:Age Group (years) NT-proBNP (pg/ml) InterpretationAll <300 Negative: HF unlikelyFor patients presenting to the ED with clinical suspicion ofnew onset or worsening HF, see below:18 to <50 >299.9 to <450.0 Grayzone: [id number] to 75 >299.9 to <900.0 other causes of>75 >299.9 to <1800.0 NT-proBNP [id number] to <50 >449.9 Positive: HF [id number] >899.9>75 >1799.9Note: Elevated NT-proBNP levels should be interpreted inthe context of other clinical information. 05/08/2025 10:0 0 AM EDT 05/08/2025 10:05 AM EDT Generic External Data Provider LAB BLOOD ORDERAB LES Final Result Performing Organization Address [facility]/ZIP Co de Phone Number [facility] [address] [place] [phone] * (ABNORMAL) CBC auto differential (05/08/2025 10:00 AM EDT) White Blood Count 6.1 4.8 - 10.8 X10*3/uL [facility] Red Blood Count 5.29 4.60 - 5.80 X10*6/uL [facility] Hemoglobin 16.0 14.0 - 18.0 g/dl [facility] Hematocrit 45.2 42.0 - 52.0 % [facility] Mean Corpuscular Volume 85.4 80.0 - 98.0 fL [facility] Mean Corpuscular Hemoglobin 30.2 27.0 - 33.0 pg [facility] Mean Corpuscular HGB Conc 35.4 31.0 - 36.0 g/dl [facility] Red Cell Distribution Width 12.5 11.0 - 16.0 % [facility] Platelet Count 211 160 - 400 X10*3/uL [facility] Mean Platelet Volume 8.9(L) 9.4 - 12.4 fL [facility] Neutrophils Percent Auto 65.7 45 - 73 % [facility] Imm Gran Pct Auto 0.3 0.0 - 0.4 % [facility] Lymphocytes Percent Auto 21.3 20 - 40 % [facility] Monocytes Percent Auto 11.4(H) 2 - 11 % [facility] Eosinophils Percent Auto 0.8 0 - 4 % [facility] Basophils Percent Auto 0.5 0 - 2 % [facility] NRBC Pct Auto 0.0 0.0 - 0.2 /100WBC [facility] Neutrophils Absolute Auto 4.0 2.0 - 8.3 x10*3/uL [facility] Imm Gran Abs Auto 0.02 0.00 - 0.03 X10*3/uL [facility] Lymphocytes Absolute Auto 1.3 1.2 - 4.9 X10*3/uL [facility] Monocytes Absolute Auto 0.7 0.1 - 1.2 X10*3/uL [facility] Eosinophils Absolute Auto 0.1 0.0 - 0.4 X10*3/uL [facility] Basophils Absolute Auto 0.0 0.0 - 0.2 X10*3/uL [facility] NRBC Abs Auto 0.000 0.0 - 0.012 X10*3/uL [facility] 05/08/2025 10:0 0 AM EDT 05/08/2025 10:05 AM EDT us Generic External Data Provider LAB BLOOD ORDERAB LES Final Result [facility] [address] [place] [phone] * TSH (05/08/2025 10:00 AM EDT) Thyroid Stimulating Hormone 0.59 0.32 - 4.0 uIU/mL [facility] Comment:TSH 3rd Generation ( [facility]) 05/08/2025 10:0 0 AM EDT 05/08/2025 10:05 AM EDT Generic External Data Provider LAB BLOOD ORDERAB LES Final Result Performing Organization Address [facility]/ZIP Co de Phone Number [facility] [address] [place] [phone] * Magnesium (05/08/2025 10:00 AM EDT) Pathologist [facility] Magnesium 1.8 1.6 - 2.6 mg/dL [facility] 05/08/2025 10:0 0 AM EDT 05/08/2025 10:05 AM EDT Hemp 4 [place] External Data Provider LAB BLOOD ORDERAB LES Final Result Performing Organization Address [facility] de Phone Number [facility] [address] [place] [phone] * (ABNORMAL) Hemoglobin A1c (05/08/2025 10:00 AM EDT) Hemoglobin A1c 7.7(H) <6.0 % [facility] Comment:Hemoglobin A1C Refer ence Range Adults: 4.8 - 6.0 % Non diabetic: < 6.0 % Goal: < 7.0 %Additional Action Suggested: > 8.0 %Note: Hemoglobin A1c results are invalid for patients with abnormal amounts of HbF. Blood transfusions may impact the HbA1c concentration in the patient sample. Estimated Average Glucose 174 mg/dL [facility] Comment:eAG = Estimated ave rage glucose which is %A1C expressed asaverage glucose, using the formula of the [id number] Glucose study (ADAG), Diabetes Care, Vol.31,#8,Mar2007 05/08/2025 10:0 0 AM EDT 05/08/2025 10:05 AM EDT us Generic External Data Provider LAB BLOOD ORDERAB LES Final Result [facility] [address] [place] [phone] * (ABNORMAL) Comprehensive Metabolic Panel (05/08/2025 10:00 AM EDT) Sodium 137 135 - 145 mmol/L [facility] Potassium 3.7 3.3 - 5.1 mmol/L [facility] Chloride 101 96 - 108 mmol/L [facility] Carbon Dioxide 28 22 - 29 mmol/L [facility] Anion Gap 12 12 - 20 [facility] Urea Nitrogen (BUN) 20(H) 9 - 16 mg/dL [facility] Creatinine, Serum 1.02 0.5 - 1.4 mg/dL [facility] Creatinine Clr Calc Pharmacy 60.6 [facility] Comment:eGFR (calculated fro m the MDRD study equation) and eCrCl(calculated from the Cockcroft-Gault equation) are based ondifferent parameters and may not yield comparable results.If eCrCl result is absurd, please check patient'sheight/weight. Estimated Glomerular Filt Rate >60 [facility] Comment:Chronic Kidney Disea se: Estimated GFR < 60 mL/min/1.20c2Lzexsn Kidney Disease: Estimated GFR < 15 mL/min/1.73m2 Glucose 267(H) 60 - 115 mg/dL [facility] Calcium 10.2 8.4 - 10.2 mg/dL [facility] Bilirubin, Total 1.1(H) 0.0 - 1.0 mg/dL [facility] Aspartate Amino Transferase 20 5 - 37 U/L [facility] Alanine Aminotransferase 22 0 - 40 U/L [facility] Total Protein 7.9 6.5 - 8.0 g/dL [facility] Albumin Level 4.5 3.5 - 5.0 g/dL [facility] Alkaline Phosphatase 101 39 - 117 U/L [facility] 05/08/2025 10:0 0 AM EDT 05/08/2025 10:05 AM EDT us Generic External Data Provider LAB BLOOD ORDERAB LES Final Result [facility] [address] [place] [phone] * (ABNORMAL) POCT HGB A1C (03/27/2025 11:51 AM EDT) Hemoglobin A1C 7.2(A) 4.0 - 5.7 % QC Media Lot # [id number] Lot# Expiration Date Blood 03/27/2025 11:5 1 AM EDT us Anju Spann MD POINT OF CARE TEST ENTER /EDIT ORDERABLES Final Result from Last 3 Months Insurance [place] [address] [place] [id number] Care Teams Stain Wiper Relationship Specialty Start Date End Date Anju Spann MD [address] [place] [phone] PCP - General Family Medicine 03/21/17
--- OUTSIDE RECORDS SUMMARY | 2025-06-15 07:50 | XMS_ITS | Encounter Summary ---
Author Organization [employer] Address [address] [facility] [address] [place] [address] Care Team Providers Care Upholsterer Inside Name Role Phone Anju Martínez MD Primary Care Provider + Boni Shetty PharmD Unavailable [phone] Encounter Details Date Type Department Care Team (Late Contact Info) Description 07/18/2022 Abstract [facility] [address] [place] [address] Anju Martínez MD [address] [place] [address] Social History Tobacco Use Types Packs/Day Years [...] Encounters Date Type Department Care Team (Late Contact Info) Description 07/07/2025 1:00 PM EST Office Visit [facility] [address] [place], [place] [id number] Daniel, Zoë, OD [address] [place] [address] 08/26/2025 9:15 AM EST Office Visit [facility] [address] [place] [address] Anju Martínez MD [address] [place] [phone] documented as of this encounter Visit Diagnoses Not on filedocumented in this encounter Care Teams Upholsterer Inside Relationship Specialty Start Date End Date Anju Martínez MD [address] [place] [phone] PCP - General Family Medicine 03/21/17 Boni Shetty, ShawD [address] [place] [address] [phone] Pharmacist Internal Medicine 02/05/23 05/14/24 documented as of this encounter
== END ==
LOC: HO.CARD 07:47
PROVIDERS: PCP Internal Medicine; Visit Provider Internal Medicine
DX: R00.2 Palpitations (principal)
CPT/HCPCS: 93225

== ENCOUNTER → 2025-06-15 07:50 | Outpatient (BNV) | payer MEDICARE, SELFPAY | PROVIDERS: PCP Internal Medicine; Visit Provider Internal Medicine | DX: I49.49 Other premature depolarization (principal); I49.3 Ventricular premature depolarization | CPT/HCPCS: 93227 ==